=== PATIENT | male | born 1960 | race African-American/Black ===

== ENCOUNTER 2017-08-06 08:36 | Emergency (ER) | payer MEDICARE, MEDICAID ==
[2017-08-06 09:35] LABS: #Lymphocytes 1.2 thou/uL (1.20-3.40); #Monocytes 0.4 thou/uL (0.11-0.59); #Neutrophils 2.6 thou/uL (1.40-6.50); %Basophils 0.8 % (0.0-1.0); %Lymphocytes 28.8 % (21.0-51.0); %Monocytes 8.7 % (0.0-10.0); Hematocrit 48.2 % (42.0-52.0); Red Blood Cell (RBC) Count 4.75 mill/uL (4.70-6.10); White Blood Cell (WBC) Count 4.3 thou/uL (4.8-10.8)
--- NOTE | 2017-08-06 09:38 | RAD ---
AP VIEW CHEST: DATE: 08/06/17. COMPARISON: Comparison is made to previous exam from 03/29/17. FINDINGS: AP view chest demonstrates sternotomy wires seen. Dorsal column stimulator is in place. The lungs are well aerated. No evidence of active intrathoracic disease is seen. No evidence of ef fusions, pneumonia, or pneumothorax seen. IMPRESSION: Unremarkable AP view chest. POS: [facility]
[2017-08-06 09:55] LABS: ALT (SGPT) 18 U/L (8-55); AST (SGOT) 30 U/L (5-34); Alkaline Phosphatase 130 U/L (40-150); Anion Gap 14 mmol/L (10-20); BUN (Urea Nitrogen) 17 mg/dL (8.4-25.7); Bilirubin, Total 1.3 mg/dL (0.2-1.2); CK (CPK) 178 U/L (30-200); Calc. Creatinine Clearance 0 mL/min (70-130); Calcium 9.3 mg/dL (7.8-10.44); Carbon Dioxide 20 mmol/L (22-29); Chloride 106 mmol/L (98-107); Estimated GFR-MDRD Greater than 90; Globulin 3.7 g/dL (2.4-3.5); Lipase 12 U/L (8-78); Protein, Total 7.5 g/dL (6.0-8.3)
[2017-08-06] MEDS ORDERED: Acetaminophen 500 MG TAB ONE (10:02)
[2017-08-06 10:04] LABS: Troponin I Less than 0.010 ng/mL (< 0.028)
--- NOTE | 2017-08-09 06:43 | EKG ---
Test Reason : CP Blood Pressure : / mmHG Vent. Rate : 062 BPM Atrial Rate : 062 BPM P-R Int : 104 ms QRS Dur : 084 ms QT Int : 400 ms P-R-T Axes : 087 088 064 degrees QTc Int : 406 ms Poor data quality, interpretation may be adversely affected Sinus rhythm with sinus arrhythmia with short CO Possible Inferior infarct , age undetermined Abnormal ECG No change from 05/2016 Confirmed by KAE HAUSER, TAN ([id number]), purchase request editor FELICITAS CARVALHO ([id number]) on 08/09/2017 6:43:40 AM Referred By: Confirmed By:TAN PAL MD
== END 2017-08-06 10:32 | disposition home or self-care (01) ==
LOC: ERS 08:36
DX: I20.8 Other forms of angina pectoris (principal); I25.10 Atherosclerotic heart disease of native coronary artery without angina pectoris; E78.5 Hyperlipidemia, unspecified; I10 Essential (primary) hypertension; F17.210 Nicotine dependence, cigarettes, uncomplicated; Z79.899 Other long term (current) drug therapy; Z79.82 Long term (current) use of aspirin
CPT/HCPCS: 36415; 71010; 80053; 82553; 83690; 83880; 84484; 85025; 93005

== ENCOUNTER 2017-11-02 12:31 | Emergency (ER) | payer MEDICARE, MEDICAID ==
--- NOTE | 2017-11-02 13:31 | RAD ---
PORTABLE CHEST: History: Chest pain. Comparison: 08-06-17 FINDINGS: The lung gonzales are clear. No infiltrate or vascular congestion. Heart size is normal. Post op sterno rachel changes noted. IMPRESSION: No acute findings. POS: [facility]
[2017-11-02 15:13] LABS: Hemoglobin 18.6 g/dL (14.0-18.0); Mean Corpuscular HGB CONC 32.9 g/dL (32.0-36.0); Mean Corpuscular Hemoglobin 33.5 pg (27.0-31.0); Mean Platelet Volume 7.9 fL (7.4-10.4); Platelet Count 147 thou/uL (130-400); RBC Distribution Width 12.9 % (11.5-14.5); Red Blood Cell (RBC) Count 5.55 mill/uL (4.70-6.10); White Blood Cell (WBC) Count 4.9 thou/uL (4.8-10.8)
[2017-11-02 15:15] LABS: Prothrombin Time 13.4 SEC (12.0-14.7)
[2017-11-02 15:32] LABS: Eosinophils 1 % (0-10); Lymphocytes 50 % (21-51); MDiff Complete? YES; Monocytes 6 % (0-10); Neutrophil 43 % (42-75); PLT Morphology Comment Appears Adequate
[2017-11-02] MEDS ORDERED: Pantoprazole 40 MG VIAL ONE ×2 (15:37→17:15)
[2017-11-02 15:50] LABS: CKMB 0.8 ng/mL (0-6.6); Troponin I Less than 0.010 ng/mL (< 0.028)
[2017-11-02 16:02] LABS: AST (SGOT) 22 U/L (5-34); Albumin 4.1 g/dL (3.5-5.0); Anion Gap 17 mmol/L (10-20); BUN (Urea Nitrogen) Less than 4 mg/dL (8.4-25.7); Bilirubin, Total 1.2 mg/dL (0.2-1.2); Calc. Creatinine Clearance 0 mL/min (70-130); Calcium 10.2 mg/dL (7.8-10.44); Carbon Dioxide 15 mmol/L (22-29); Chloride 108 mmol/L (98-107); Estimated GFR-MDRD Greater than 90; Globulin 3.7 g/dL (2.4-3.5); Potassium 4.4 mmol/L (3.5-5.1); Protein, Total 7.8 g/dL (6.0-8.3); Sodium 136 mmol/L (136-145)
[2017-11-02 16:13] LABS: Bilirubin Moderate (Negative); Blood, Urine Negative (Negative); Clarity CLEAR (Clear); Glucose, Urine (Dipstick) Negative (Negative); Leukocyte Negative (Negative); Nitrite Negative (Negative); Protein, Urine (Dipstick) Negative (Neg-Trace); Specific Gravity, Urine 1.034 (1.002-1.036)
[2017-11-02 16:26] LABS: Amphetamine Not Detected (NotDetected); Barbiturates Screen Not Detected (NotDetected); Benzodiazepine Screen Not Detected (NotDetected); Cocaine Metabolite Screen Not Detected (NotDetected); Medtox Control Line Valid? VALID (VALID); Medtox Reader # READER 4; Methadone Not Detected (NotDetected); Methamphetamine Not Detected (NotDetected); Opiate Screen Detected (NotDetected); Oxycodone Screen Detected (NotDetected); Phencyclidine (PCP) Not Detected (NotDetected); THC/Cannabinoid Screen Detected (NotDetected); Tricyclic Screen Not Detected (NotDetected)
[2017-11-02] MEDS ORDERED: Acetaminophen 325 MG TAB PO PRN (17:02)
[2017-11-02] MEDS ORDERED: HYDROcodone/Acetaminophen 10/325 mg Tablet PO PRN (17:02)
[2017-11-02] MEDS ORDERED: Mag-Al 1200 mg/1200 mg/30 ML UDCUP PO PRN (17:02)
[2017-11-02] MEDS ORDERED: traMADol HCl 50 MG TAB PO PRN (17:02)
[2017-11-02] MEDS ORDERED: Promethazine HCl 25 MG SUPP PR PRN (17:02)
[2017-11-02] MEDS ORDERED: Sodium Chloride 0.9% 1,000 ML IV SCH (17:02)
[2017-11-02] MEDS ORDERED: Nitroglycerin 0.4 MG TAB (25 Tab Bottle) PO PRN (17:02)
[2017-11-02] MEDS ORDERED: Guaifenesin DM 100-10/5 ML UDCUP PO PRN (17:02)
[2017-11-02 17:35] LABS: Glucose 81 mg/dL (70-105)
[2017-11-02 17:37] LABS: Alkaline Phosphatase 106 U/L (40-150)
--- NOTE | 2017-11-02 17:39 | HP ---
REASON FOR ADMISSION: Chest pain, epigastric pain with radiation to the back. HISTORY OF PRESENTING ILLNESS: The patient gives history of having chest pain, which started from yesterday. This is in the retrosternal area and feels heavy. It is also burning in nature. This is associated with epigastric pain with some radiation to the back. He took nitroglycerin, which gave him some relief. He has been coughing with yellow sputum. The patient continues to smoke one pack a day despite having CABG. No complaints of fever. The patient has known history of having had Whipple's procedure for pancreatitis due to alcohol abuse in the past. PAST MEDICAL AND SURGICAL HISTORY: Chronic pain on narcotics, coronary artery disease, CABG done in 2009, hypertension, dyslipidemia, tobacco abuse, marijuana abuse, chronic pancreatitis with prior Whipple's procedure, chronic back pain with prior back surgery, orchiectomy, cholecystectomy, spinal stimulator, peripheral vascular disease, GERD. PERSONAL HISTORY: Smokes one pack a day, admits to using marijuana, does not abuse other drugs or alcohol. FAMILY HISTORY: Father of pancreatic cancer. Mother is alive and has history of coronary artery disease and hypertension. ALLERGIES: Allergic to MORPHINE and ZOFRAN, but is comfortable taking [place] and Ultram. CURRENT MEDICATIONS: Patient takes aspirin 81 mg p.o. daily, Dexilant 30 mg p.o. daily, [place] 10/325 mg q.6 hourly p.r.n., Creon 24,000 Units p.o. 3 times daily, prasugrel 10 mg p.o. daily, Lyrica 150 mg 3 times daily, Phenergan p.r.n. , Ultram p.r.n. REVIEW OF SYSTEMS: The following complete review of systems was negative, unless otherwise mentioned in the HPI or below: Constitutional: Weight loss or gain, ability to conduct usual activities. Skin: Rash, itching. Eyes: Double vision, pain. ENT/Mouth: Nose bleeding, neck stiffness, pain, tenderness. Cardiovascular: Palpitations, dyspnea on exertion, orthopnea. Respiratory: Shortness of breath, wheezing, cough, hemoptysis, fever or night sweats. Gastrointestinal: Poor appetite, abdominal pain, heartburn, nausea, vomiting, constipation, or diarrhea. Genitourinary: Urgency, frequency, dysuria, nocturia. Musculoskeletal: Pain, swelling. Neurologic/Psychiatric: Anxiety, depression. Allergy/Immunologic: Skin rash, bleeding tendency. PHYSICAL EXAMINATION: GENERAL: The patient is a 57-year-old male who is currently not in any acute distress. VITAL SIGNS: Blood pressure 136/74, pulse 76 per minute, respiratory rate 18 per minute, temperature 97.8 degrees Fahrenheit, saturating 95% on room air. NECK: Supple, no elevated JVD. HEENT: Extraocular muscles intact. Pupils reacting to light. Oral cavity mucous membranes are moist. No exudates or congestion. CARDIOVASCULAR: S1, S2 heard. Regular rhythm. RESPIRATORY: Air entry 1+ bilateral. Scattered rhonchi plus, no rales or wheezes. ABDOMEN: Soft, bowel sounds heard. No tenderness, rigidity or guarding. EXTREMITIES: No peripheral edema or calf tenderness. VASCULAR SYSTEM: Peripheral pulses 1+ bilateral. No ischemic ulcerations or gangrene. CENTRAL NERVOUS SYSTEM: No gross focal deficits seen. Patient is alert, awake , oriented well. PSYCHIATRIC SYSTEM: The patient's mood is euthymic. No hallucinations or delusions. LABORATORY AND X-RAY FINDINGS: White count 4.9, H&H 18 and 56, platelet count 147 with 43% neutrophils, MCV is 102. PT, INR, PTT within normal limits. One set of cardiac enzymes are negative. BNP is 12.6. Urine drug screen is positive for opiates, oxycodone, and marijuana. Chest x-ray done shows no acute cardiopulmonary abnormalities. CLINICAL IMPRESSION AND PLAN: The patient will be under observation on telemetry for atypical chest pain with epigastric pain as well. We will try to obtain his lipase and a metabolic panel. He is also dehydrated and will place him on normal saline at 70 mL per hour. His urine is high colored here at bedside. We will continue him on aspirin, small dose of Coreg and Dexilant at home dose, Effient, Ultram and Allegh[place] as before. He will also be on Creon at his home dose before meals for his chronic history of pancreatitis. A CT of the abdomen and pelvis has been ordered in the ER and will follow up on the results. EKG shows normal sinus rhythm at 75 beats per minute with no gross ST- T wave changes. Addendum: his lipase is normal and his chest pain is completely resolved. Troponin is -ve. He wants to go home and drink atleast 2 liters of free water and wants to be discharged from ER. He is adviced to f/u with his pcp in 1 week. Please note this is a same day admit/discharge or consult note from ER. [facility]
[2017-11-02 17:40] LABS: Acetaminophen Less than 6.0 mcg/mL (10.0-30.0); Alcohol Less than 10 mg/dL (Less than 10); Salicylate Less than 8.0 mg/dL (15.0-30.0)
[2017-11-02 17:41] LABS: ALT (SGPT) 14 U/L (8-55); CK (CPK) 164 U/L (30-200); Lipase 18 U/L (8-78)
[2017-11-02 17:43] LABS: Troponin I Less than 0.010 ng/mL (< 0.028)
[2017-11-02] MEDS ORDERED: Fentanyl 100 MCG/2 ML VIAL ONE (17:48)
[2017-11-02] MEDS ORDERED: Carvedilol 3.125 MG TAB PO SCH (21:00)
--- NOTE | 2017-11-02 23:33 | CT ---
ABDOMEN CT WITHOUT CONTRAST PELVIC CT WITHOUT CONTRAST 11/02/17 HISTORY: Chest pain x3 days. Nausea and vomiting. COMPARISON: None. TECHNIQUE: An abdomen and pelvic CT are performed without IV or oral contrast. Coronal reformatted images are bustos bmitted for interpretation. FINDINGS: Mild emphysematous changes in lung bases. Heart size is within normal limits. No pericardial effusion . The descending thoracic aorta and abdominal aorta have an overall normal caliber. No periaortic fat stranding. 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 There ar e scattered calcified atherosclerotic plaques throughout the visualized abdominal vascular system. Limited evaluation of the solid organs due to lack of IV contrast. Grossly, no solid organ abnormalit y. Air in the central biliary system is suspected. Correlate for previous surgery at the sphincter of Od di. Air in the biliary system is noted on a CT from December 2015. There is no gastrohepatic, retrocrural or periportal lymphadenopathy. No mesenteric mass, lymphadenopathy, free air or free fluid. Stable atrophy of the abdominal rectus muscles. Limited evaluation of the alimentary canal due to lack of oral contrast. No evidence of obvious small bowel obstruction. Ileocecal junction is normal. Normal caliber appendix with appendicolith. Fecal m aterial in a nondistended, nondilated colon. There is intrinsic hyperdensity involving the posterior left mid cortex, measuring 0.7 cm in short axis. This corresponds to a previous area of isodensity. Interval hemorrhagic or complex proteinaceous cyst is favored. PELVIC CT: No mass, lymphadenopathy, free air or free fluid. The urinary bladder is unremarkable. IMPRESSION: 1. 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 2. 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 3. No obvious acute abnormality in the abdomen or pelvis. POS: [facility]
[2017-11-03] MEDS ORDERED: Pancrelipase DR 12000 1 CAP PO SCH (08:00)
[2017-11-03] MEDS ORDERED: Prasugrel 10 MG TAB PO SCH (09:00)
[2017-11-03] MEDS ORDERED: Enoxaparin Sodium 40 MG/0.4 ML SYRINGE SC SCH (09:00)
[2017-11-03] MEDS ORDERED: Aspirin 325 MG TAB PO SCH (09:00)
--- NOTE | 2017-11-26 15:14 | EKG ---
Test Reason : Blood Pressure : / mmHG Vent. Rate : 075 BPM Atrial Rate : 075 BPM P-R Int : 130 ms QRS Dur : 080 ms QT Int : 386 ms P-R-T Axes : 080 089 052 degrees QTc Int : 431 ms Normal sinus rhythm Cannot rule out Inferior infarct , age undetermined Abnormal ECG Confirmed by KAE HAUSER, TAN ([id number]), news video editor JOELLE ROOT ([id number]) on 11/26/2017 3:14:06 PM Referred By: Confirmed By:TAN PAL MD
== END 2017-11-02 19:58 | disposition home or self-care (01) ==
LOC: ERS 12:31
DX: R07.9 Chest pain, unspecified (principal); R10.13 Epigastric pain; E78.5 Hyperlipidemia, unspecified; I10 Essential (primary) hypertension; F17.210 Nicotine dependence, cigarettes, uncomplicated; Z79.899 Other long term (current) drug therapy; Z79.82 Long term (current) use of aspirin
CPT/HCPCS: 36415; 71045; 74176; 80053; 80306; 80307; 81003; 82550; 82553; 83690; 83880; 84484; 85025; 85610; 85730; 93005; 96361; 96374; 96375; C9113; J3010

== ENCOUNTER 2019-05-21 15:48 | Emergency (ER) | payer MEDICARE, MEDICAID ==
--- NOTE | 2019-05-21 16:12 | RAD ---
CHEST ONE VIEW: HISTORY: Chest pain. COMPARISON: Radiograph from 11/02/2017. FINDINGS: The leads and dorsal column stimulator are seen with the tip at the mid T9 vertebral body. There is a fracture of the caudal-most median sternotomy wire. The lungs are clear. No pneumothorax . No effusion. IMPRESSION: No acute intrathoracic abnormality. POS: [facility]
[2019-05-21 16:26] LABS: #Eosinphils 0.1 thou/uL (0.0-0.7); #Lymphocytes 2.1 thou/uL (1.20-3.40); #Monocytes 0.4 thou/uL (0.11-0.59); #Neutrophils 2.5 thou/uL (1.40-6.50); %Basophils 0.7 % (0.0-1.0); %Eosinophils 1.5 % (0.0-10.0); %Lymphocytes 40.7 % (21.0-51.0); %Monocytes 6.8 % (0.0-10.0); %Neutrophils 50.3 % (42.0-75.0); Hemoglobin 15.9 g/dL (14.0-18.0); Mean Corpuscular HGB CONC 32.2 g/dL (32.0-36.0); Mean Corpuscular Hemoglobin 32.3 pg (27.0-31.0); Mean Platelet Volume 7.5 fL (7.4-10.4); Platelet Count 165 thou/uL (130-400); RBC Distribution Width 12.5 % (11.5-14.5); Red Blood Cell (RBC) Count 4.93 mill/uL (4.70-6.10); White Blood Cell (WBC) Count 5.1 thou/uL (4.8-10.8)
[2019-05-21 16:45] LABS: ALT (SGPT) 9 U/L (8-55); AST (SGOT) 22 U/L (5-34); Albumin 4.8 g/dL (3.5-5.0); Alkaline Phosphatase 138 U/L (40-150); Anion Gap 13 mmol/L (10-20); BUN (Urea Nitrogen) 14 mg/dL (8.4-25.7); CK (CPK) 230 U/L (30-200); Calc. Creatinine Clearance 0 mL/min (70-130); Carbon Dioxide 22 mmol/L (22-29); Chloride 107 mmol/L (98-107); Estimated GFR-MDRD 89; Globulin 3.8 g/dL (2.4-3.5); Glucose 89 mg/dL (70-105); Potassium 3.7 mmol/L (3.5-5.1); Protein, Total 8.6 g/dL (6.0-8.3); Sodium 138 mmol/L (136-145)
[2019-05-21] MEDS ORDERED: Ketorolac Tromethamine 60 MG/2 ML VIAL ONE (16:48)
== END 2019-05-21 17:20 | disposition home or self-care (01) ==
LOC: ERS 15:48
DX: R07.89 Other chest pain (principal); E78.5 Hyperlipidemia, unspecified; I10 Essential (primary) hypertension; I25.10 Atherosclerotic heart disease of native coronary artery without angina pectoris; F17.210 Nicotine dependence, cigarettes, uncomplicated; Z79.899 Other long term (current) drug therapy; Z79.82 Long term (current) use of aspirin
CPT/HCPCS: 36415; 71045; 80053; 82550; 84484; 85025; 93005; 96372; J1885

== ENCOUNTER 2019-11-07 09:58 | Emergency (ER) | payer MEDICARE, MEDICAID ==
[2019-11-07 11:21] LABS: #Lymphocytes 1.5 thou/uL (1.20-3.40); #Monocytes 0.4 thou/uL (0.11-0.59); #Neutrophils 3.6 thou/uL (1.40-6.50); %Basophils 0.1 % (0.0-1.0); %Eosinophils 0.6 % (0.0-10.0); %Lymphocytes 27.5 % (21.0-51.0); %Monocytes 6.5 % (0.0-10.0); %Neutrophils 65.3 % (42.0-75.0); Hemoglobin 14.7 g/dL (14.0-18.0); Mean Corpuscular HGB CONC 32.9 g/dL (32.0-36.0); Mean Corpuscular Hemoglobin 33.3 pg (27.0-31.0); Mean Platelet Volume 7.2 fL (7.4-10.4); Platelet Count 190 thou/uL (130-400); RBC Distribution Width 12.9 % (11.5-14.5); Red Blood Cell (RBC) Count 4.43 mill/uL (4.70-6.10); White Blood Cell (WBC) Count 5.6 thou/uL (4.8-10.8)
[2019-11-07] MEDS ORDERED: Proparacaine 0.5% Opth 15 ML BOT ONE (11:27)
[2019-11-07] MEDS ORDERED: Fluorescein Opthalmic Strip ONE (11:27)
[2019-11-07] MEDS ORDERED: Fentanyl 100 MCG/2 ML VIAL ONE (11:42)
[2019-11-07 11:47] LABS: ALT (SGPT) 8 U/L (8-55); AST (SGOT) 16 U/L (5-34); Albumin 4.4 g/dL (3.5-5.0); Alkaline Phosphatase 115 U/L (40-110); Anion Gap 11 mmol/L (10-20); BUN (Urea Nitrogen) 16 mg/dL (8.4-25.7); Bilirubin, Total 0.8 mg/dL (0.2-1.2); Calc. Creatinine Clearance 0 mL/min (70-130); Calcium 9.5 mg/dL (7.8-10.44); Carbon Dioxide 26 mmol/L (22-29); Chloride 110 mmol/L (98-107); Estimated GFR-MDRD Greater than 90; Globulin 3.5 g/dL (2.4-3.5); Glucose 80 mg/dL (70-105); Lipase 13 U/L (8-78); Potassium 3.8 mmol/L (3.5-5.1); Protein, Total 7.9 g/dL (6.0-8.3); Sodium 143 mmol/L (136-145)
--- NOTE | 2019-11-07 11:50 | RAD ---
FRONTAL RADIOGRAPH CHEST: Date: 11/07/2019 COMPARISON: 05/21/2019. HISTORY: Chest pain. FINDINGS: Mild stable increased linear interstitial density. Stable hyperinflation. Midline sternotomy wires an d dorsal column stimulating leads again noted. No focal consolidation or alveolar edema. There is a q uestionable nodule within the lateral aspect of the left lung base measuring approximately 9-10 mm. R ecommend 2 view examination of the chest for further assessment. IMPRESSION: No acute findings. Questionable nodule within the lateral aspect of the left base versus nipple shadow. Recommend follow -up PA and lateral imaging with nipple markers. CODE LN. CODE T. POS: [facility]
--- NOTE | 2019-11-07 12:40 | CT ---
CT FACIAL BONES WITH IV CONTRAST: 11/07/2019 PROVIDED CLINICAL HISTORY: Eye pain. FINDINGS: There is cutaneous thickening and increased density involving the subjacent subcutaneous adipose laye r in the left infraorbital/premaxillary region. There is no evidence for a rim enhancing fluid collec tion to suggest abscess. The globes and other orbital contents appear normal. The paranasal sinuses are free of significant opacity. No regional lymph node enlargement is apparent. The regional major vascular structures appear unremar kable, with the exception of vascular calcification. The oral cavity, oropharynx and hypopharynx demo nstrate a normal CT appearance. IMPRESSION: Left infraorbital/premaxillary soft tissue changes suggesting cellulitis. There is no evidence for so ft tissue abscess or post septal abnormality. POS: [facility]
[2019-11-07] MEDS ORDERED: Clindamycin 150 MG CAP PO SCH (13:00)
[2019-11-07 13:38] LABS: Troponin I 0.012 ng/mL (< 0.028)
[2019-11-07] MEDS ORDERED: Iopamidol-370 76% 500 ML 1 ML ONE (14:47)
== END 2019-11-07 14:00 | disposition home or self-care (01) ==
LOC: ERS 09:58
DX: R07.9 Chest pain, unspecified (principal); L03.213 Periorbital cellulitis; I25.10 Atherosclerotic heart disease of native coronary artery without angina pectoris; E78.5 Hyperlipidemia, unspecified; I10 Essential (primary) hypertension; F17.210 Nicotine dependence, cigarettes, uncomplicated; Z79.899 Other long term (current) drug therapy; Z79.82 Long term (current) use of aspirin
CPT/HCPCS: 36415; 70487; 71045; 80053; 83690; 84484; 85025; 93005; 96374; J3010; Q9967

== ENCOUNTER 2020-10-28 04:40 | Emergency (ER) | payer MEDICARE, MEDICAID ==
[2020-10-28] MEDS ORDERED: Ketorolac Tromethamine 30 MG/ML VIAL ONE (05:01)
[2020-10-28 05:36] LABS: #Eosinphils 0.1 thou/uL (0.0-0.7); #Lymphocytes 1.6 thou/uL (1.20-3.40); #Monocytes 0.5 thou/uL (0.11-0.59); #Neutrophils 2.1 thou/uL (1.40-6.50); %Basophils 1.1 % (0.0-1.0); %Eosinophils 1.6 % (0.0-10.0); %Lymphocytes 36.1 % (21.0-51.0); %Neutrophils 49.2 % (42.0-75.0); Mean Corpuscular HGB CONC 32.5 g/dL (32.0-36.0); Mean Corpuscular Hemoglobin 32.5 pg (27.0-31.0); Mean Corpuscular Volume 99.8 fL (78.0-98.0); Mean Platelet Volume 7.7 fL (7.4-10.4); Platelet Count 152 thou/uL (130-400); RBC Distribution Width 12.5 % (11.5-14.5); Red Blood Cell (RBC) Count 4.32 mill/uL (4.70-6.10); White Blood Cell (WBC) Count 4.3 thou/uL (4.8-10.8)
[2020-10-28] MEDS ORDERED: Prochlorperazine Maleate 5 MG TAB ONE (05:48)
[2020-10-28 05:57] LABS: ALT (SGPT) 7 U/L (8-55); AST (SGOT) 15 U/L (5-34); Albumin 3.9 g/dL (3.5-5.0); Alkaline Phosphatase 114 U/L (40-110); Anion Gap 12 mmol/L (10-20); BUN (Urea Nitrogen) 14 mg/dL (8.4-25.7); Bilirubin, Total 0.8 mg/dL (0.2-1.2); Calc. Creatinine Clearance 0 mL/min (70-130); Calcium 8.5 mg/dL (7.8-10.44); Carbon Dioxide 20 mmol/L (22-29); Chloride 111 mmol/L (98-107); Globulin 3.1 g/dL (2.4-3.5); Glucose 87 mg/dL (70-105); Potassium 3.4 mmol/L (3.5-5.1); Sodium 140 mmol/L (136-145)
--- NOTE | 2020-10-28 07:48 | RAD ---
RADIOGRAPH CHEST 1 VIEW: DATE: 10/28/2020 HISTORY: 60-year-old male with cough and chest pain FINDINGS: There are no airspace densities, pulmonary edema, pneumothorax, or cardiomegaly. The lateral costophr enic angles are sharp. Sternotomy wires. Prominent interstitial markings. IMPRESSION: No acute cardiopulmonary findings.
[2020-10-28 08:33] LABS: SARS-CoV-2 MS2 Positive; SARS-CoV-2 N Gene Negative; SARS-CoV-2 S Gene Negative; SARS-CoV-2 by NAA Not Detected (NotDetected); SARS-CoV-2 orf1ab Negative
== END 2020-10-28 06:17 | disposition home or self-care (01) ==
LOC: ERS 04:40
DX: R51.9 Headache, unspecified (principal); M79.10 Myalgia, unspecified site; Z20.828 Contact with and (suspected) exposure to other viral communicable diseases; I25.10 Atherosclerotic heart disease of native coronary artery without angina pectoris; E78.5 Hyperlipidemia, unspecified; I10 Essential (primary) hypertension; F17.210 Nicotine dependence, cigarettes, uncomplicated; Z79.82 Long term (current) use of aspirin; Z79.899 Other long term (current) drug therapy
CPT/HCPCS: 71045; 80053; 84484; 85025; 93005; U0003; 36415; 87635; 96372; J1885; Q0164

== ENCOUNTER 2021-01-14 10:17 | Inpatient (IN) | payer MEDICARE, MEDICAID ==
[~2021-01-14 10:17] MED LIST: Iopamidol 370 76% 100 ML VIAL ONE
[2021-01-14 10:47] LABS: #Eosinphils 0.1 thou/uL (0.0-0.7); #Lymphocytes 1.6 thou/uL (1.20-3.40); #Monocytes 0.4 thou/uL (0.11-0.59); #Neutrophils 2.5 thou/uL (1.40-6.50); %Basophils 0.4 % (0.0-1.0); %Eosinophils 1.6 % (0.0-10.0); %Lymphocytes 35.7 % (21.0-51.0); %Monocytes 7.8 % (0.0-10.0); %Neutrophils 54.4 % (42.0-75.0); Hemoglobin 16.2 g/dL (14.0-18.0); Mean Corpuscular HGB CONC 33.6 g/dL (32.0-36.0); Mean Corpuscular Hemoglobin 33.8 pg (27.0-31.0); Platelet Count 163 thou/uL (130-400); RBC Distribution Width 12.5 % (11.5-14.5); Red Blood Cell (RBC) Count 4.79 mill/uL (4.70-6.10); White Blood Cell (WBC) Count 4.5 thou/uL (4.8-10.8)
[2021-01-14] MEDS ORDERED: HYDROcodone/Acetaminophen 10/325 mg Tablet ONE (10:53)
[2021-01-14] MEDS ORDERED: Ondansetron PF 4 MG/2 ML Vial ONE (10:54)
[2021-01-14] MEDS ORDERED: Nitroglycerin 2% Ointment 1 INCH/1 GM Packet ONE (10:54)
[2021-01-14 11:08] LABS: Alcohol Less than 10 mg/dL (Less than 10)
[2021-01-14] MEDS ORDERED: Promethazine HCl 25 MG/ML VIAL ONE (11:15)
[2021-01-14 11:27] LABS: Globulin 3.2 g/dL (2.4-3.5)
[2021-01-14 11:32] LABS: Acetaminophen Less than 6.0 mcg/mL (10.0-30.0); CK (CPK) 174 U/L (30-200); Salicylate Less than 8.0 mg/dL (15.0-30.0)
[2021-01-14] MEDS ORDERED: Fentanyl 100 MCG/2 ML VIAL ONE (11:38)
[2021-01-14 11:58] LABS: Albumin 4.5 g/dL (3.5-5.0)
[2021-01-14 12:00] LABS: Calcium 9.2 mg/dL (7.8-10.44); Chloride 108 mmol/L (98-107); Potassium 4.1 mmol/L (3.5-5.1); Sodium 139 mmol/L (136-145)
[2021-01-14 12:01] LABS: Glucose 114 mg/dL (70-105); Protein, Total 7.8 g/dL (6.0-8.3)
[2021-01-14 12:02] LABS: Anion Gap 16 mmol/L (10-20); Carbon Dioxide 19 mmol/L (22-29)
[2021-01-14 12:03] LABS: Bilirubin, Total 1.3 mg/dL (0.2-1.2)
[2021-01-14 12:04] LABS: Alkaline Phosphatase 126 U/L (40-110); Calc. Creatinine Clearance 0 mL/min (70-130)
[2021-01-14 12:05] LABS: BUN (Urea Nitrogen) 16 mg/dL (8.4-25.7)
[2021-01-14 12:06] LABS: AST (SGOT) 21 U/L (5-34)
[2021-01-14 12:07] LABS: ALT (SGPT) 12 U/L (8-55); Lipase 20 U/L (8-78)
[2021-01-14 12:57] LABS: Bilirubin Negative (Negative); Blood, Urine Negative (Negative); Clarity Clear (Clear); Glucose, Urine (Dipstick) Normal (Negative); Ketone, Urine Negative (Negative); Leukocyte Negative Leu/uL (Negative); Nitrite Negative (Negative); Protein, Urine (Dipstick) 10 mg/dL (Neg-Trace); Specific Gravity, Urine 1.046 (1.002-1.036)
[2021-01-14 13:05] LABS: Medtox Reader # READER 4
[2021-01-14 13:06] LABS: Amphetamine Not Detected (NotDetected); Barbiturates Screen Not Detected (NotDetected); Benzodiazepine Screen Not Detected (NotDetected); Cocaine Metabolite Screen Not Detected (NotDetected); Medtox Control Line Valid? VALID (VALID); Methadone Not Detected (NotDetected); Methamphetamine Not Detected (NotDetected); Opiate Screen Detected (NotDetected); Oxycodone Screen Not Detected (NotDetected); Phencyclidine (PCP) Not Detected (NotDetected); THC/Cannabinoid Screen Detected (NotDetected); Tricyclic Screen Not Detected (NotDetected)
[2021-01-14] MEDS ORDERED: Enoxaparin Sodium 60 MG/0.6 ML SYRINGE ONE (14:09)
[2021-01-14] MEDS ORDERED: Aspirin 325 MG TAB PO SCH (14:30)
[2021-01-14] MEDS ORDERED: Promethazine 25 MG TAB PO PRN (14:33)
[2021-01-14] MEDS ORDERED: Carvedilol 3.125 MG TAB PO SCH (14:45)
[2021-01-14 15:32] LABS: Troponin I 0.011 ng/mL (< 0.028)
[2021-01-14 17:35] VITALS: BMI 20.9
[2021-01-14] MEDS: Carvedilol 3.125 MG TAB PO SCH (18:41)
[2021-01-14 19:04] LABS: Troponin I 0.017 ng/mL (< 0.028)
[2021-01-14] MEDS ORDERED: Rosuvastatin 20 MG TAB PO SCH (21:00)
[2021-01-14] MEDS: Pantoprazole 40 MG VIAL IVP SCH (21:20)
[2021-01-14] MEDS: Nitroglycerin 2% Ointment 1 INCH/1 GM Packet TOP SCH (21:20)
[2021-01-14] MEDS: HYDROcodone/Acetaminophen 5/325 mg Tablet PO PRN (21:35)
[2021-01-15 04:33] LABS: SARS-CoV-2 PCR by NAA Not Detected (NotDetected)
[2021-01-15] MEDS: HYDROcodone/Acetaminophen 5/325 mg Tablet PO PRN ×3 (06:10→14:02)
[2021-01-15] MEDS: Nitroglycerin 2% Ointment 1 INCH/1 GM Packet TOP SCH ×2 (06:11→14:07)
[2021-01-15 06:44] LABS: Cardiac Risk 4.5 (Less than 4.5)
[2021-01-15] MEDS ORDERED: Aspirin Chewable 81 MG TAB PO SCH (09:00)
[2021-01-15] MEDS ORDERED: FLU VACC QS2020-21(6MOS UP)/PF 60 MCG/0.5 ML SYRINGE IM ONE (09:00)
[2021-01-15] MEDS ORDERED: Nitroglycerin 0.4 MG TAB (25 Tab Bottle) SL PRN (09:35)
[2021-01-15] MEDS ORDERED: Nitroglycerin 0.4 MG TAB 1 EACH SL PRN (09:38)
[2021-01-15] MEDS: Carvedilol 3.125 MG TAB PO SCH ×2 (09:46→16:20)
[2021-01-15] MEDS ORDERED: Regadenoson 0.4 MG/5 ML SYRINGE ONE (09:57)
[2021-01-15] MEDS ORDERED: Fentanyl 100 MCG/2 ML VIAL SLOW IVP PRN (10:02)
[2021-01-15] MEDS: Pantoprazole 40 MG VIAL IVP SCH (10:48)
[2021-01-15 16:35] VITALS: BP 169/77; TEMP 98.5
[2021-01-15] MEDS ORDERED: Enoxaparin Sodium 80 MG/0.8 ML SYRINGE SC SCH (23:50)
== END 2021-01-15 16:42 | disposition home or self-care (01) | DRG 313 ==
LOC: ERS 10:17 → 2SW 14:59
PROVIDERS: ADMIT Internal Medicine; ATTEND Internal Medicine
DX: R07.89 Other chest pain (principal); K86.1 Other chronic pancreatitis; I25.110 Atherosclerotic heart disease of native coronary artery with unstable angina pectoris; Z20.822 Contact with and (suspected) exposure to COVID-19; F17.210 Nicotine dependence, cigarettes, uncomplicated; N28.1 Cyst of kidney, acquired; I10 Essential (primary) hypertension; E78.5 Hyperlipidemia, unspecified; I49.3 Ventricular premature depolarization; K86.89 Other specified diseases of pancreas; Z95.1 Presence of aortocoronary bypass graft; Z88.0 Allergy status to penicillin; Z88.5 Allergy status to narcotic agent; Z88.8 Allergy status to other drugs, medicaments and biological substances; Z79.82 Long term (current) use of aspirin; Z79.899 Other long term (current) drug therapy; Z79.01 Long term (current) use of anticoagulants
CPT/HCPCS: 36415; 71045; 71275; 78452; 80053; 80061; 80306; 80307; 81003; 82550; 83690; 83735; 83880; 84443; 84484; 85025; 87635; 93005; 93017; 94760; 96372; 96374; 96375; A9500; C9113; J1650; J2405; J2550; J2785; J3010; Q9967; U0003; U0005

== ENCOUNTER 2021-09-27 12:11 | Emergency (ER) | payer MEDICARE, MEDICAID ==
[2021-09-27 12:51] LABS: #Eosinphils 0.1 thou/uL (0.0-0.7); #Lymphocytes 1.7 thou/uL (1.20-3.40); #Monocytes 0.4 thou/uL (0.11-0.59); #Neutrophils 2.6 thou/uL (1.40-6.50); %Basophils 0.4 % (0.0-1.0); %Eosinophils 1.6 % (0.0-10.0); %Lymphocytes 34.7 % (21.0-51.0); %Monocytes 8.5 % (0.0-10.0); %Neutrophils 54.9 % (42.0-75.0); Mean Corpuscular Hemoglobin 36.3 pg (27.0-31.0); Mean Platelet Volume 8.5 fL (7.4-10.4); Platelet Count 167 thou/uL (130-400); RBC Distribution Width 12.4 % (11.5-14.5); Red Blood Cell (RBC) Count 3.57 mill/uL (4.70-6.10); White Blood Cell (WBC) Count 4.8 thou/uL (4.8-10.8)
[2021-09-27] MEDS ORDERED: Aspirin Chewable 81 MG TAB ONE (13:59)
[2021-09-27] MEDS ORDERED: Nitroglycerin 2% Ointment 1 INCH/1 GM Packet ONE (13:59)
[2021-09-27 14:02] LABS: Albumin 3.6 g/dL (3.5-5.0)
[2021-09-27 14:03] LABS: Chloride 111 mmol/L (98-107); Potassium 3.7 mmol/L (3.5-5.1); Sodium 139 mmol/L (136-145)
[2021-09-27 14:04] LABS: Calcium 9.1 mg/dL (7.8-10.44); Glucose 73 mg/dL (70-105)
[2021-09-27 14:05] LABS: Globulin 3.1 g/dL (2.4-3.5); Protein, Total 6.7 g/dL (6.0-8.3)
[2021-09-27 14:06] LABS: Anion Gap 12 mmol/L (10-20); Bilirubin, Total 0.6 mg/dL (0.2-1.2); Carbon Dioxide 20 mmol/L (22-29)
[2021-09-27 14:07] LABS: Alkaline Phosphatase 91 U/L (40-110)
[2021-09-27 14:08] LABS: Calc. Creatinine Clearance 0 mL/min (70-130)
[2021-09-27 14:09] LABS: BUN (Urea Nitrogen) 9 mg/dL (8.4-25.7)
[2021-09-27 14:10] LABS: ALT (SGPT) 13 U/L (8-55); AST (SGOT) 18 U/L (5-34)
== END 2021-09-27 14:47 | disposition left against medical advice (07) ==
LOC: ERS 12:11
DX: R07.9 Chest pain, unspecified (principal); I25.10 Atherosclerotic heart disease of native coronary artery without angina pectoris; E78.5 Hyperlipidemia, unspecified; I10 Essential (primary) hypertension; F17.210 Nicotine dependence, cigarettes, uncomplicated; Z79.899 Other long term (current) drug therapy; Z79.82 Long term (current) use of aspirin
CPT/HCPCS: 36415; 71045; 80053; 84484; 85025; 93005

== ENCOUNTER 2022-04-10 09:37 | Inpatient (IN) | payer MEDICARE, MEDICAID ==
[2022-04-10] MEDS ORDERED: Dextrose 50% Abboject 50 ML SYRINGE ONE ×2 (09:56→16:37)
[2022-04-10] MEDS ORDERED: Sodium Bicarb 50 MEQ/50 ML Abboject 8.4% SYRINGE ONE (10:04)
[2022-04-10] MEDS ORDERED: Calcium Chloride 1 GM/10 ML Abboject SYRINGE ONE (10:04)
[2022-04-10 10:48] LABS: Hemoglobin 6.8 g/dL (14.0-18.0); Mean Corpuscular HGB CONC 32.1 g/dL (32.0-36.0); Mean Corpuscular Hemoglobin 35.4 pg (27.0-31.0); Mean Platelet Volume 8.1 fL (7.4-10.4); Platelet Count 65 thou/uL (130-400); Red Blood Cell (RBC) Count 1.93 mill/uL (4.70-6.10); Reflex for Review?? YES; White Blood Cell (WBC) Count 0.5 thou/uL (4.8-10.8)
[2022-04-10] MEDS ORDERED: Fentanyl 100 MCG/2 ML VIAL ONE (10:56)
[2022-04-10 10:57] LABS: Calc. Creatinine Clearance 0 mL/min (70-130)
[2022-04-10] MEDS ORDERED: Piperacillin/Tazobactam 3.375 GM VIAL ONE (11:01)
[2022-04-10 11:14] LABS: Macrocytosis MODERATE=16-30 cells (100X) (0-5/hpf); Ovalocytes SLIGHT = 2-5 cells (100X) (0-1/hpf); Platelet Morphology Comment Appears Decreased; Polychromasia SLIGHT = 2-3 cells (100X) (0-2/hpf)
[2022-04-10 11:33] LABS: PTT 38.5 sec (22.9-36.1); Prothrombin Time 23.3 sec (12.0-14.7)
[2022-04-10 11:48] LABS: Iron 15 ug/dL (65-175); Iron Binding Capacity, Total 235 mcg/dL (261-462)
[2022-04-10 11:50] LABS: Calcium 7.2 mg/dL (7.8-10.44)
[2022-04-10 11:52] LABS: Carbon Dioxide 13 mmol/L (22-29)
[2022-04-10 11:59] LABS: Sodium 144 mmol/L (136-145)
[2022-04-10 12:00] LABS: Anion Gap 19 mmol/L (10-20); Chloride 116 mmol/L (98-107)
[2022-04-10 12:01] LABS: BUN (Urea Nitrogen) 59 mg/dL (8.4-25.7); Glucose 92 mg/dL (70-105)
[2022-04-10 12:02] LABS: Bilirubin, Total 1.1 mg/dL (0.2-1.2); Protein, Total 6.1 g/dL (6.0-8.3)
[2022-04-10 12:04] LABS: AST (SGOT) 254 U/L (5-34); Alkaline Phosphatase 66 U/L (40-110); Globulin 3.1 g/dL (2.4-3.5)
[2022-04-10 12:05] LABS: ALT (SGPT) 142 U/L (8-55)
[2022-04-10 12:06] LABS: Magnesium 2.2 mg/dL (1.6-2.6)
[2022-04-10] MEDS ORDERED: Azithromycin 500 MG VIAL ONE (12:08)
[2022-04-10 12:18] LABS: Bilirubin Small (Negative); Blood, Urine Large (Negative); Glucose, Urine (Dipstick) Negative (Negative); Ketone, Urine Trace mg/dL (Negative); Leukocyte Negative (Negative); Nitrite Positive (Negative); Protein, Urine (Dipstick) 100 mg/dL (Neg-Trace)
[2022-04-10 12:21] LABS: Clarity Hazy (Clear)
[2022-04-10 12:22] LABS: Specific Gravity, Urine 1.022 (1.002-1.036)
[2022-04-10 12:25] LABS: Bacteria/HPF 2+ HPF (None Seen); RBC/HPF 0-3 HPF (0-3); WBC/HPF 0-3 HPF (0-3)
[2022-04-10] MEDS ORDERED: Ketamine 50 MG/ML (10ML VIAL) ONE (12:32)
[2022-04-10] MEDS ORDERED: EPINEPHrine 1 MG/10 ML Abboject SYRINGE ONE (12:35)
[2022-04-10 12:59] LABS: Actual Bicarbonate (HCO3v) 16 mEq/L (22-28); Analyzer IN Cardio ER; Base Excess -13.4 mEq/L (-2.0 to +3.0); Calcium, Ionized (venous) 0.83 mmol/L (1.16-1.32); Chloride (VBG) 115 mmol/L (98-106); Hemoglobin (Hb) 14.4 g/dL (13.1-17.2); Potassium (VBG) 4.73 mmol/L (3.70-5.30); Sodium 142.6 mmol/L (133-146)
[2022-04-10] MEDS ORDERED: Norepinephrine 8 MG/0.9% NS 250 ML ONE (13:00)
[2022-04-10 13:05] LABS: pH (venous) 7.12 (7.32-7.43)
[2022-04-10 13:06] LABS: Actual Bicarbonate (HCO3a) 3.9 mEq/L (22-28); Analyzer IN Cardio ER; Base Excess (BEa) -24.9 mEq/L (-2.0 to +3.0)
[2022-04-10 13:07] LABS: CO2 Tension 17.1 mmHg (35.0-45.0); pH, Arterial 6.98 (7.35-7.45)
[2022-04-10 13:08] LABS: Hemoglobin (Hb) 3.4 g/dL (14.0-18.0); O2 Tension (PaO2), arterial 43.8 mmHg (> 80.0); Potassium - ABG Lab 0.83 mmol/L (3.70-5.30)
[2022-04-10 13:09] LABS: ALV-art Gradient 647.825 mmHg (0-20); Puncture Site RRA
[2022-04-10] MEDS ORDERED: Propofol 1,000 MG/100 ML VIAL IV ONE (13:15)
[2022-04-10 13:29] LABS: Lactic Acid 3.7 mmol/L (0.5-2.2)
[2022-04-10] MEDS ORDERED: Ventilator Sedation Protocol 1 EACH FS ONE (13:53)
[2022-04-10 14:28] LABS: Troponin I 0.036 ng/mL (< 0.028)
[2022-04-10 14:39] LABS: Actual Bicarbonate (HCO3a) 16.3 mEq/L (22-28); Analyzer IN Cardio ER; Base Excess (BEa) -12.1 mEq/L (-2.0 to +3.0); CO2 Tension 46.5 mmHg (35.0-45.0); Calcium, Ionized (arterial) 1.06 mmol/L (1.12-1.30); Carboxyhemoglobin (COHb) 0.3 gm% (0.0-3.0); Hemoglobin (Hb) 14.6 g/dL (14.0-18.0); O2 Tension (PaO2), arterial 112.2 mmHg (> 80.0); Potassium - ABG Lab 4.45 mmol/L (3.70-5.30)
[2022-04-10 14:40] LABS: ALV-art Gradient 542.675 mmHg (0-20); Puncture Site LRA; pH, Arterial 7.16 (7.35-7.45)
[2022-04-10] MEDS ORDERED: Vecuronium 10 MG VIAL ONE (15:28)
[2022-04-10 15:39] LABS: SARS-CoV-2 NAA Rapid Test Not Detected (NotDetected)
[2022-04-10] MEDS ORDERED: DISCONTINUE PREVIOUS NARCOTIC PAIN MEDICATIONS AND BENZODIAZEPINES FS SCH (15:45)
[2022-04-10] MEDS ORDERED: Fentanyl BOLUS 250 ML IVPB PRN (15:45)
[2022-04-10] MEDS ORDERED: Morphine 4 MG/ML VIAL SLOW IVP PRN (15:45)
[2022-04-10] MEDS ORDERED: Propofol BOLUS 1,000 MG/100 ML VIAL IV PRN (15:45)
[2022-04-10] MEDS ORDERED: Fentanyl CADD 100 ML IV SCH (15:45)
[2022-04-10 16:24] LABS: Actual Bicarbonate (HCO3a) 16.7 mEq/L (22-28); Base Excess (BEa) -12.7 mEq/L (-2.0 to +3.0); CO2 Tension 51.7 mmHg (35.0-45.0); Calcium, Ionized (arterial) 1.08 mmol/L (1.12-1.30); Carboxyhemoglobin (COHb) 0.9 gm% (0.0-3.0); Hemoglobin (Hb) 14.9 g/dL (14.0-18.0); O2 Tension (PaO2), arterial 116.8 mmHg (> 80.0); Potassium - ABG Lab 4.32 mmol/L (3.70-5.30)
[2022-04-10 16:30] LABS: Puncture Site RRA; pH, Arterial 7.13 (7.35-7.45)
[2022-04-10 16:31] LABS: ALV-art Gradient 531.575 mmHg (0-20)
[2022-04-10 16:35] LABS: Glucose 56 mg/dL (70-105)
[2022-04-10 17:40] LABS: Amphetamine Not Detected (NotDetected); Barbiturates Screen Not Detected (NotDetected); Benzodiazepine Screen Not Detected (NotDetected); Cocaine Metabolite Screen Not Detected (NotDetected); Methadone Not Detected (NotDetected); Methamphetamine Not Detected (NotDetected); Opiate Screen Detected (NotDetected); Oxycodone Screen Not Detected (NotDetected); Phencyclidine (PCP) Not Detected (NotDetected); THC/Cannabinoid Screen Detected (NotDetected); Tricyclic Screen Not Detected (NotDetected)
[2022-04-10] MEDS ORDERED: Vancomycin HCl 750 MG in Sodium Chloride 0.9% 250 ML 250 ML IVPB SCH (18:00)
[2022-04-10] MEDS ORDERED: Dextrose 5% in Water 1,000 ML IV PRN (18:15)
[2022-04-10] MEDS: Sodium Bicarbonate 70 MEQ in Sodium Chloride 0.45% 1,000 ML IV SCH (18:16)
[2022-04-10] MEDS: Dextrose 50% Abboject 50 ML SYRINGE IVP PRN (20:16)
[2022-04-10] MEDS: Vecuronium 10 MG VIAL IVP PRN (20:22)
[2022-04-10] MEDS: fentaNYL Citrate-0.9 % NaCl/PF 100 ML IV SCH (21:19)
[2022-04-11] MEDS: Norepinephrine 8 MG/0.9% NS 250 ML IVPB SCH ×3 (01:58→21:28)
[2022-04-11] MEDS: Propofol 1,000 MG/100 ML VIAL IV PRN ×2 (03:30→14:41)
[2022-04-11] MEDS: Vecuronium 10 MG VIAL IVP PRN (03:39)
[2022-04-11] MEDS: Sodium Bicarbonate 70 MEQ in Sodium Chloride 0.45% 1,000 ML IV SCH (04:00)
[2022-04-11 04:52] LABS: Hemoglobin 14.8 g/dL (14.0-18.0); Mean Corpuscular HGB CONC 31.8 g/dL (32.0-36.0); Mean Platelet Volume 8.6 fL (7.4-10.4); Platelet Count 96 thou/uL (130-400); RBC Distribution Width 13.8 % (11.5-14.5); Red Blood Cell (RBC) Count 4.34 mill/uL (4.70-6.10); White Blood Cell (WBC) Count 0.9 thou/uL (4.8-10.8)
[2022-04-11 05:12] LABS: ALT (SGPT) 570 U/L (8-55); AST (SGOT) 859 U/L (5-34); Albumin 2.7 g/dL (3.5-5.0); Alkaline Phosphatase 72 U/L (40-110); Anion Gap 15 mmol/L (10-20); BUN (Urea Nitrogen) 56 mg/dL (8.4-25.7); Bilirubin, Total 1.5 mg/dL (0.2-1.2); Calc. Creatinine Clearance 31 mL/min (70-130); Calcium 7.5 mg/dL (7.8-10.44); Carbon Dioxide 19 mmol/L (22-29); Chloride 116 mmol/L (98-107); Globulin 3.1 g/dL (2.4-3.5); Glucose 80 mg/dL (70-105); Potassium 4.6 mmol/L (3.5-5.1); Protein, Total 5.8 g/dL (6.0-8.3); Sodium 145 mmol/L (136-145)
[2022-04-11 05:14] LABS: Band 15 % (5-11); Lymphocytes 15 % (21-51); MDiff Complete? YES; Macrocytosis SLIGHT = 6-15 cells (100X) (0-5/hpf); Monocytes 50 % (0-10); Neutrophil 20 % (42-75); Platelet Morphology Comment Appears Decreased
[2022-04-11 07:14] LABS: Actual Bicarbonate (HCO3a) 16.4 mEq/L (22-28); Base Excess (BEa) -10.8 mEq/L (-2.0 to +3.0); CO2 Tension 41.3 mmHg (35.0-45.0); Calcium, Ionized (arterial) 1.04 mmol/L (1.12-1.30); Carboxyhemoglobin (COHb) 0.6 gm% (0.0-3.0); Hemoglobin (Hb) 15.2 g/dL (14.0-18.0); O2 Tension (PaO2), arterial 89.5 mmHg (> 80.0); Potassium - ABG Lab 4.51 mmol/L (3.70-5.30)
[2022-04-11] MEDS ORDERED: Acetaminophen 325 MG TAB PO PRN (07:14)
[2022-04-11 07:17] LABS: Puncture Site LRA; pH, Arterial 7.22 (7.35-7.45)
[2022-04-11 07:18] LABS: ALV-art Gradient 429.275 mmHg (0-20)
[2022-04-11] MEDS ORDERED: Famotidine/PF 20 mg/2ml Vial SLOW IVP SCH (09:00)
[2022-04-11] MEDS: Famotidine 40 MG/4 ML VIAL SLOW IVP SCH (09:28)
[2022-04-11] MEDS: Sodium Bicarbonate 140 MEQ in Dextrose 5% in Water 1,000 ML IV SCH (10:10)
[2022-04-11] MEDS: fentaNYL Citrate-0.9 % NaCl/PF 100 ML IV SCH ×2 (10:11→23:30)
[2022-04-11] MEDS: Lorazepam 2 MG/ML VIAL SLOW IVP PRN ×2 (15:30→16:47)
[2022-04-11] MEDS ORDERED: Digoxin 0.5 MG/2 ML AMP SLOW IVP SCH (16:15)
[2022-04-11] MEDS ORDERED: Sodium Chloride 0.9% 500 ML IV SCH (16:15)
[2022-04-11] MEDS ORDERED: Amiodarone 150 MG in Dextrose 5% in Water 100 ML IVPB SCH (16:30)
[2022-04-11] MEDS ORDERED: Vecuronium 10 MG VIAL ONE (16:40)
[2022-04-11] MEDS: Amiodarone 450 MG in Dextrose 5% in Water 250 ML IVPB SCH (16:47)
[2022-04-11] MEDS ORDERED: Vecuronium 10 MG VIAL IV SCH (17:00)
[2022-04-11] MEDS ORDERED: Vecuronium Bromide 20 MG VIAL IV SCH (17:00)
[2022-04-11] MEDS ORDERED: Vancomycin HCl 750 MG in Sodium Chloride 0.9% 250 ML 250 ML IVPB SCH (18:00)
[2022-04-11] MEDS: Digoxin 0.5 MG/2 ML AMP SLOW IVP SCH ×2 (18:36→23:33)
[2022-04-11 18:49] LABS: Vancomycin, Random 4.1 ug/mL (See Comment)
[2022-04-11] MEDS ORDERED: VANCOMYCIN 1.25 GM/250 ML BAG 1.25 GM in Premix Bag 1 BAG IVPB SCH (19:30)
[2022-04-12] MEDS: Sodium Bicarbonate 140 MEQ in Dextrose 5% in Water 1,000 ML IV SCH (00:38)
[2022-04-12] MEDS: Propofol 1,000 MG/100 ML VIAL IV PRN ×2 (04:11→21:16)
[2022-04-12] MEDS: Amiodarone 450 MG in Dextrose 5% in Water 250 ML IVPB SCH ×2 (04:18→16:32)
[2022-04-12 04:54] LABS: INR-International Normal Ratio 1.4; PTT 41.7 sec (22.9-36.1)
[2022-04-12 05:04] LABS: Digoxin 1.92 ng/mL (0.8-2.0)
[2022-04-12 05:08] LABS: ALT (SGPT) 701 U/L (8-55); AST (SGOT) 727 U/L (5-34); Albumin 2.3 g/dL (3.5-5.0); Alkaline Phosphatase 78 U/L (40-110); Anion Gap 12 mmol/L (10-20); BUN (Urea Nitrogen) 42 mg/dL (8.4-25.7); Bilirubin, Total 1.9 mg/dL (0.2-1.2); CK (CPK) 1068 U/L (30-200); Calc. Creatinine Clearance 40 mL/min (70-130); Calcium 7.2 mg/dL (7.8-10.44); Carbon Dioxide 24 mmol/L (22-29); Chloride 111 mmol/L (98-107); Globulin 2.9 g/dL (2.4-3.5); Glucose 133 mg/dL (70-105); Magnesium 1.9 mg/dL (1.6-2.6); Potassium 4.5 mmol/L (3.5-5.1); Protein, Total 5.2 g/dL (6.0-8.3); Sodium 142 mmol/L (136-145)
[2022-04-12 05:28] LABS: Band 53 % (5-11); Hemoglobin 13.9 g/dL (14.0-18.0); Lymphocytes 12 % (21-51); MDiff Complete? YES; Macrocytosis MODERATE=16-30 cells (100X) (0-5/hpf); Mean Corpuscular HGB CONC 33.8 g/dL (32.0-36.0); Mean Corpuscular Hemoglobin 35.7 pg (27.0-31.0); Mean Platelet Volume 8.8 fL (7.4-10.4); Metamyelocyte 6 % (0-0); Monocytes 1 % (0-10); Neutrophil 28 % (42-75); Platelet Count 67 thou/uL (130-400); Platelet Morphology Comment Appears Decreased; RBC Distribution Width 13.6 % (11.5-14.5); Vacuoles SLIGHT; White Blood Cell (WBC) Count 3.5 thou/uL (4.8-10.8)
[2022-04-12 07:57] LABS: Actual Bicarbonate (HCO3a) 23.3 mEq/L (22-28); Base Excess (BEa) -2.3 mEq/L (-2.0 to +3.0); CO2 Tension 42.7 mmHg (35.0-45.0); Calcium, Ionized (arterial) 1.03 mmol/L (1.12-1.30); Carboxyhemoglobin (COHb) 0.7 gm% (0.0-3.0); Hemoglobin (Hb) 14.1 g/dL (14.0-18.0); O2 Tension (PaO2), arterial 79.6 mmHg (> 80.0); Potassium - ABG Lab 4.28 mmol/L (3.70-5.30); pH, Arterial 7.35 (7.35-7.45)
[2022-04-12 08:07] LABS: Puncture Site RBA
[2022-04-12 08:08] LABS: ALV-art Gradient 294.825 mmHg (0-20)
[2022-04-12] MEDS: Digoxin 0.5 MG/2 ML AMP SLOW IVP SCH ×2 (09:42→13:11)
[2022-04-12] MEDS: Famotidine 40 MG/4 ML VIAL SLOW IVP SCH (09:42)
[2022-04-12] MEDS: Norepinephrine 8 MG/0.9% NS 250 ML IVPB SCH ×2 (09:42→16:14)
[2022-04-12] MEDS: Dextrose 50% Abboject 50 ML SYRINGE IVP PRN (16:15)
[2022-04-12] MEDS ORDERED: Vancomycin 1 GM in Premix Bag 1 BAG IVPB SCH (18:00)
[2022-04-12] MEDS: fentaNYL Citrate-0.9 % NaCl/PF 100 ML IV SCH (20:27)
[2022-04-13 04:29] LABS: INR-International Normal Ratio 1.3; PTT 41.4 sec (22.9-36.1); Prothrombin Time 16.5 sec (12.0-14.7)
[2022-04-13 04:39] LABS: ALT (SGPT) 632 U/L (8-55); AST (SGOT) 529 U/L (5-34); Albumin 2.2 g/dL (3.5-5.0); Alkaline Phosphatase 85 U/L (40-110); Anion Gap 13 mmol/L (10-20); BUN (Urea Nitrogen) 33 mg/dL (8.4-25.7); Bilirubin, Total 2.1 mg/dL (0.2-1.2); CK (CPK) 867 U/L (30-200); Calc. Creatinine Clearance 52 mL/min (70-130); Calcium 8.2 mg/dL (7.8-10.44); Carbon Dioxide 24 mmol/L (22-29); Chloride 110 mmol/L (98-107); Globulin 2.9 g/dL (2.4-3.5); Glucose 101 mg/dL (70-105); Protein, Total 5.1 g/dL (6.0-8.3); Sodium 143 mmol/L (136-145)
[2022-04-13 04:44] LABS: Band 36 % (5-11); Hemoglobin 13.4 g/dL (14.0-18.0); Lymphocytes 1 % (21-51); MDiff Complete? YES; Macrocytosis SLIGHT = 6-15 cells (100X) (0-5/hpf); Mean Corpuscular HGB CONC 32.3 g/dL (32.0-36.0); Mean Corpuscular Hemoglobin 34.2 pg (27.0-31.0); Mean Platelet Volume 9.5 fL (7.4-10.4); Monocytes 7 % (0-10); Neutrophil 56 % (42-75); Platelet Count 44 thou/uL (130-400); Platelet Morphology Comment Appears Decreased; RBC Distribution Width 13.5 % (11.5-14.5); Red Blood Cell (RBC) Count 3.92 mill/uL (4.70-6.10); White Blood Cell (WBC) Count 7.5 thou/uL (4.8-10.8)
[2022-04-13 07:45] LABS: Actual Bicarbonate (HCO3a) 22.2 mEq/L (22-28); Base Excess (BEa) -1.5 mEq/L (-2.0 to +3.0); CO2 Tension 34.4 mmHg (35.0-45.0); Calcium, Ionized (arterial) 1.13 mmol/L (1.12-1.30); Carboxyhemoglobin (COHb) 1.1 gm% (0.0-3.0); Hemoglobin (Hb) 13.8 g/dL (14.0-18.0); Potassium - ABG Lab 3.86 mmol/L (3.70-5.30); pH, Arterial 7.43 (7.35-7.45)
[2022-04-13 07:46] LABS: Puncture Site RBA
[2022-04-13] MEDS: Amiodarone 450 MG in Dextrose 5% in Water 250 ML IVPB SCH ×2 (08:01→23:37)
[2022-04-13] MEDS: Famotidine 40 MG/4 ML VIAL SLOW IVP SCH (09:25)
[2022-04-13] MEDS: Famotidine 20 MG TAB PER TUBE SCH (09:28)
[2022-04-13] MEDS: fentaNYL Citrate-0.9 % NaCl/PF 100 ML IV SCH (13:07)
[2022-04-13] MEDS: Hydrocortisone Sod Succ/PF 100 mg/2 ml Vial IVP SCH ×2 (13:12→17:35)
[2022-04-13] MEDS: Propofol 1,000 MG/100 ML VIAL IV PRN (17:35)
[2022-04-13] MEDS: Senokot S 8.6-50 MG TAB PO SCH (20:23)
[2022-04-14] MEDS ORDERED: Hydrocortisone Sod Succ/PF 100 mg/2 ml Vial ONE (00:03)
[2022-04-14] MEDS: Hydrocortisone Sod Succ/PF 100 mg/2 ml Vial IVP SCH ×5 (00:08→23:42)
[2022-04-14 05:21] LABS: ALT (SGPT) 395 U/L (8-55); AST (SGOT) 191 U/L (5-34); Albumin 2.2 g/dL (3.5-5.0); Alkaline Phosphatase 86 U/L (40-110); Anion Gap 11 mmol/L (10-20); BUN (Urea Nitrogen) 39 mg/dL (8.4-25.7); Bilirubin, Total 1.9 mg/dL (0.2-1.2); CK (CPK) 314 U/L (30-200); Calc. Creatinine Clearance 54 mL/min (70-130); Calcium 8.2 mg/dL (7.8-10.44); Carbon Dioxide 27 mmol/L (22-29); Chloride 110 mmol/L (98-107); Glucose 146 mg/dL (70-105); Potassium 3.9 mmol/L (3.5-5.1); Protein, Total 5.2 g/dL (6.0-8.3); Sodium 144 mmol/L (136-145)
[2022-04-14 05:22] LABS: INR-International Normal Ratio 1.2; Prothrombin Time 15.2 sec (12.0-14.7)
[2022-04-14 05:23] LABS: INR-International Normal Ratio 1.2; PTT 38.9 sec (22.9-36.1); Prothrombin Time 15.4 sec (12.0-14.7)
[2022-04-14 05:24] LABS: Fibrinogen 698 mg/dL (253-463); PTT 41.7 sec (22.9-36.1)
[2022-04-14] MEDS: Propofol 1,000 MG/100 ML VIAL IV PRN ×2 (05:28→15:51)
[2022-04-14 05:33] LABS: D-Dimer Test 17.78 *mcg/mL (0.27-0.43)
[2022-04-14 05:37] LABS: Band 28 % (5-11); Hemoglobin 12.4 g/dL (14.0-18.0); Lymphocytes 5 % (21-51); MDiff Complete? YES; Macrocytosis MODERATE=16-30 cells (100X) (0-5/hpf); Mean Corpuscular HGB CONC 32.5 g/dL (32.0-36.0); Mean Corpuscular Hemoglobin 34.4 pg (27.0-31.0); Monocytes 1 % (0-10); Neutrophil 66 % (42-75); Platelet Count 38 thou/uL (130-400); Platelet Morphology Comment Appears Decreased; RBC Distribution Width 13.7 % (11.5-14.5); Red Blood Cell (RBC) Count 3.62 mill/uL (4.70-6.10); Schistocytes SLIGHT = 2-5 cells (100X) (0-1/hpf); Target Cells SLIGHT = 2-5 cells (100X) (0-1/hpf); Tear Drops SLIGHT = 2-5 cells (100X) (0-1/hpf); White Blood Cell (WBC) Count 10.4 thou/uL (4.8-10.8)
[2022-04-14 05:53] LABS: Platelet Count 38 thou/uL (130-400)
[2022-04-14] MEDS: Senokot S 8.6-50 MG TAB PO SCH ×2 (08:58→21:08)
[2022-04-14] MEDS: Famotidine 20 MG TAB PER TUBE SCH (08:58)
[2022-04-14] MEDS: Polyethylene Glycol 3350 17 GM Packet PER TUBE SCH (08:58)
[2022-04-14 09:00] LABS: Actual Bicarbonate (HCO3v) 25 mEq/L (22-28); Base Excess 0.8 mEq/L (-2.0 to +3.0); Calcium, Ionized (venous) 1.14 mmol/L (1.16-1.32); Chloride (VBG) 109 mmol/L (98-106); Hemoglobin (Hb) 13.1 g/dL (13.1-17.2); Potassium (VBG) 3.88 mmol/L (3.70-5.30); Sodium 140.7 mmol/L (133-146); pH (venous) 7.44 (7.32-7.43)
[2022-04-14] MEDS: Lorazepam 2 MG/ML VIAL SLOW IVP PRN (09:05)
[2022-04-14] MEDS ORDERED: LEVOFLOXACIN IVPB PRN (09:33)
[2022-04-14] MEDS: fentaNYL Citrate-0.9 % NaCl/PF 100 ML IV SCH (10:22)
[2022-04-14] MEDS: Amiodarone 450 MG in Dextrose 5% in Water 250 ML IVPB SCH (14:06)
[2022-04-15] MEDS: Propofol 1,000 MG/100 ML VIAL IV PRN ×3 (03:03→22:59)
[2022-04-15 04:38] LABS: ALT (SGPT) 286 U/L (8-55); AST (SGOT) 96 U/L (5-34); Albumin 2.4 g/dL (3.5-5.0); Alkaline Phosphatase 90 U/L (40-110); Anion Gap 13 mmol/L (10-20); BUN (Urea Nitrogen) 44 mg/dL (8.4-25.7); Bilirubin, Total 1.4 mg/dL (0.2-1.2); Calc. Creatinine Clearance 60 mL/min (70-130); Calcium 8.3 mg/dL (7.8-10.44); Carbon Dioxide 25 mmol/L (22-29); Chloride 110 mmol/L (98-107); Globulin 3.5 g/dL (2.4-3.5); Glucose 134 mg/dL (70-105); Potassium 3.6 mmol/L (3.5-5.1); Protein, Total 5.9 g/dL (6.0-8.3); Sodium 144 mmol/L (136-145)
[2022-04-15 05:12] LABS: Band 19 % (5-11); Hemoglobin 12.4 g/dL (14.0-18.0); Hypochromia SLIGHT = 6-15 cells (100X) (0-5/hpf); Lymphocytes 3 % (21-51); MDiff Complete? YES; Macrocytosis SLIGHT = 6-15 cells (100X) (0-5/hpf); Mean Corpuscular HGB CONC 32.3 g/dL (32.0-36.0); Mean Corpuscular Hemoglobin 34.1 pg (27.0-31.0); Mean Platelet Volume 9.8 fL (7.4-10.4); Monocytes 9 % (0-10); Neutrophil 69 % (42-75); Platelet Count 45 thou/uL (130-400); Platelet Morphology Comment Appears Decreased; RBC Distribution Width 13.8 % (11.5-14.5); Red Blood Cell (RBC) Count 3.64 mill/uL (4.70-6.10); White Blood Cell (WBC) Count 13.4 thou/uL (4.8-10.8)
[2022-04-15] MEDS: fentaNYL Citrate-0.9 % NaCl/PF 100 ML IV SCH (06:17)
[2022-04-15] MEDS: Hydrocortisone Sod Succ/PF 100 mg/2 ml Vial IVP SCH ×4 (06:17→22:59)
[2022-04-15 07:12] LABS: Actual Bicarbonate (HCO3a) 21.4 mEq/L (22-28); Base Excess (BEa) -1.2 mEq/L (-2.0 to +3.0); CO2 Tension 29.6 mmHg (35.0-45.0); Calcium, Ionized (arterial) 1.15 mmol/L (1.12-1.30); Carboxyhemoglobin (COHb) 0.8 gm% (0.0-3.0); O2 Tension (PaO2), arterial 79.8 mmHg (> 80.0); Potassium - ABG Lab 3.63 mmol/L (3.70-5.30); pH, Arterial 7.48 (7.35-7.45)
[2022-04-15 07:26] LABS: Puncture Site RRA
[2022-04-15] MEDS: Polyethylene Glycol 3350 17 GM Packet PER TUBE SCH (07:46)
[2022-04-15] MEDS: Famotidine 20 MG TAB PER TUBE SCH (07:46)
[2022-04-15] MEDS: Senokot S 8.6-50 MG TAB PO SCH ×2 (07:46→22:59)
[2022-04-15] MEDS: Lorazepam 2 MG/ML VIAL SLOW IVP PRN ×2 (09:00→14:08)
[2022-04-15] MEDS ORDERED: Iopamidol 370 76% 50 ML VIAL FS ONE (10:31)
[2022-04-15] MEDS ORDERED: Lidocaine 1% PF 5 ML VIAL ONE (12:56)
[2022-04-16] MEDS: fentaNYL Citrate-0.9 % NaCl/PF 100 ML IV SCH ×2 (00:14→20:28)
[2022-04-16 04:27] LABS: Hemoglobin 12.3 g/dL (14.0-18.0); Mean Corpuscular HGB CONC 32.2 g/dL (32.0-36.0); Mean Corpuscular Hemoglobin 33.7 pg (27.0-31.0); Mean Platelet Volume 9.5 fL (7.4-10.4); Platelet Count 70 thou/uL (130-400); RBC Distribution Width 13.8 % (11.5-14.5); Red Blood Cell (RBC) Count 3.64 mill/uL (4.70-6.10); White Blood Cell (WBC) Count 14.8 thou/uL (4.8-10.8)
[2022-04-16 04:40] LABS: ALT (SGPT) 169 U/L (8-55); AST (SGOT) 53 U/L (5-34); Albumin 2.2 g/dL (3.5-5.0); Alkaline Phosphatase 82 U/L (40-110); Anion Gap 11 mmol/L (10-20); BUN (Urea Nitrogen) 39 mg/dL (8.4-25.7); Calc. Creatinine Clearance 63 mL/min (70-130); Calcium 7.6 mg/dL (7.8-10.44); Carbon Dioxide 25 mmol/L (22-29); Chloride 113 mmol/L (98-107); Glucose 142 mg/dL (70-105); Potassium 3.3 mmol/L (3.5-5.1); Protein, Total 5.2 g/dL (6.0-8.3); Sodium 146 mmol/L (136-145)
[2022-04-16 05:03] LABS: Band 7 % (5-11); Lymphocytes 4 % (21-51); MDiff Complete? YES; Monocytes 8 % (0-10); Neutrophil 81 % (42-75); Nucleated RBC 1 % (0); Platelet Morphology Comment Appears Decreased
[2022-04-16] MEDS: Hydrocortisone Sod Succ/PF 100 mg/2 ml Vial IVP SCH ×4 (06:08→22:54)
[2022-04-16] MEDS: Propofol 1,000 MG/100 ML VIAL IV PRN ×2 (06:10→18:04)
[2022-04-16] MEDS ORDERED: Potassium Chloride 20 MEQ in Premix Bag 1 BAG IVPB SCH (08:00)
[2022-04-16] MEDS: Senokot S 8.6-50 MG TAB PO SCH ×2 (08:37→19:30)
[2022-04-16] MEDS: Famotidine 20 MG TAB PER TUBE SCH (08:37)
[2022-04-16] MEDS: Polyethylene Glycol 3350 17 GM Packet PER TUBE SCH (09:38)
[2022-04-16 10:56] LABS: Actual Bicarbonate (HCO3v) 26 mEq/L (22-28); Base Excess 3.5 mEq/L (-2.0 to +3.0); Calcium, Ionized (venous) 1.07 mmol/L (1.16-1.32); Chloride (VBG) 113 mmol/L (98-106); Sodium 145.6 mmol/L (133-146)
[2022-04-16] MEDS ORDERED: Electrolyte Replacement Protocol 1 EACH FS PRN (14:00)
[2022-04-16] MEDS ORDERED: Magnesium 2 GM/50 ML(in water) 2 GM in Premix Bag 1 BAG IVPB SCH (15:45)
[2022-04-16] MEDS: Nicotine 14 MG PATCH TD SCH (16:12)
[2022-04-16] MEDS: Lorazepam 2 MG/ML VIAL SLOW IVP PRN ×2 (16:13→23:35)
[2022-04-16] MEDS: clonazePAM 0.5 MG TAB PO SCH (19:30)
[2022-04-17] MEDS: Propofol 1,000 MG/100 ML VIAL IV PRN ×2 (00:48→05:54)
[2022-04-17] MEDS: Lorazepam 2 MG/ML VIAL SLOW IVP PRN ×5 (01:06→23:39)
[2022-04-17] MEDS: Hydrocortisone Sod Succ/PF 100 mg/2 ml Vial IVP SCH ×3 (05:04→22:17)
[2022-04-17 06:18] LABS: Hemoglobin 11.6 g/dL (14.0-18.0); Mean Corpuscular HGB CONC 32.2 g/dL (32.0-36.0); Mean Corpuscular Hemoglobin 34.1 pg (27.0-31.0); Mean Platelet Volume 9.4 fL (7.4-10.4); Platelet Count 127 thou/uL (130-400); RBC Distribution Width 14.2 % (11.5-14.5); White Blood Cell (WBC) Count 13.6 thou/uL (4.8-10.8)
[2022-04-17 06:36] LABS: ALT (SGPT) 107 U/L (8-55); AST (SGOT) 43 U/L (5-34); Albumin 2.1 g/dL (3.5-5.0); Alkaline Phosphatase 72 U/L (40-110); Anion Gap 11 mmol/L (10-20); BUN (Urea Nitrogen) 36 mg/dL (8.4-25.7); Bilirubin, Total 0.8 mg/dL (0.2-1.2); Calc. Creatinine Clearance 67 mL/min (70-130); Calcium 7.9 mg/dL (7.8-10.44); Carbon Dioxide 27 mmol/L (22-29); Chloride 114 mmol/L (98-107); Globulin 3.7 g/dL (2.4-3.5); Glucose 143 mg/dL (70-105); Potassium 3.6 mmol/L (3.5-5.1); Protein, Total 5.8 g/dL (6.0-8.3); Sodium 148 mmol/L (136-145)
[2022-04-17 06:39] LABS: Band 20 % (5-11); Lymphocytes 11 % (21-51); MDiff Complete? YES; Monocytes 4 % (0-10); Neutrophil 65 % (42-75); Platelet Morphology Comment Appears Decreased
[2022-04-17 08:07] LABS: Actual Bicarbonate (HCO3a) 25.6 mEq/L (22-28); Base Excess (BEa) 2.5 mEq/L (-2.0 to +3.0); CO2 Tension 34.5 mmHg (35.0-45.0); Calcium, Ionized (arterial) 1.12 mmol/L (1.12-1.30); Carboxyhemoglobin (COHb) 0.5 gm% (0.0-3.0); Hemoglobin (Hb) 12.4 g/dL (14.0-18.0); Potassium - ABG Lab 3.41 mmol/L (3.70-5.30); pH, Arterial 7.49 (7.35-7.45)
[2022-04-17 08:13] LABS: Puncture Site RRA
[2022-04-17 08:14] LABS: ALV-art Gradient 184.075 mmHg (0-20)
[2022-04-17] MEDS: Polyethylene Glycol 3350 17 GM Packet PER TUBE SCH (08:15)
[2022-04-17] MEDS: Senokot S 8.6-50 MG TAB PO SCH ×2 (08:15→22:17)
[2022-04-17] MEDS: clonazePAM 0.5 MG TAB PO SCH ×2 (08:15→22:17)
[2022-04-17] MEDS: Famotidine 20 MG TAB PER TUBE SCH (08:15)
[2022-04-17] MEDS: Nicotine 14 MG PATCH TD SCH (15:52)
[2022-04-18] MEDS: fentaNYL Citrate-0.9 % NaCl/PF 100 ML IV SCH ×3 (00:31→23:20)
[2022-04-18 05:20] LABS: #Lymphocytes 0.6 thou/uL (1.20-3.40); #Monocytes 0.6 thou/uL (0.11-0.59); #Neutrophils 10.7 thou/uL (1.40-6.50); %Eosinophils 0.1 % (0.0-10.0); %Lymphocytes 5.2 % (21.0-51.0); %Neutrophils 89.7 % (42.0-75.0); Hemoglobin 10.8 g/dL (14.0-18.0); Mean Corpuscular HGB CONC 31.4 g/dL (32.0-36.0); Mean Corpuscular Hemoglobin 33.6 pg (27.0-31.0); Mean Platelet Volume 8.2 fL (7.4-10.4); Platelet Count 172 thou/uL (130-400); RBC Distribution Width 14.3 % (11.5-14.5); Red Blood Cell (RBC) Count 3.22 mill/uL (4.70-6.10); White Blood Cell (WBC) Count 11.9 thou/uL (4.8-10.8)
[2022-04-18] MEDS: Hydrocortisone Sod Succ/PF 100 mg/2 ml Vial IVP SCH ×3 (06:36→22:21)
[2022-04-18 07:47] LABS: Base Excess (BEa) 4.3 mEq/L (-2.0 to +3.0); CO2 Tension 38.4 mmHg (35.0-45.0); Calcium, Ionized (arterial) 1.14 mmol/L (1.12-1.30); Hemoglobin (Hb) 11.2 g/dL (14.0-18.0); O2 Tension (PaO2), arterial 66.1 mmHg (> 80.0); Potassium - ABG Lab 3.78 mmol/L (3.70-5.30); pH, Arterial 7.48 (7.35-7.45)
[2022-04-18 07:56] LABS: Puncture Site RBA
[2022-04-18] MEDS ORDERED: HumaLOG 300 UNITS/3 ML VIAL SC PRN (08:44)
[2022-04-18] MEDS ORDERED: Dextrose 5% in Water 1,000 ML IV PRN (08:44)
[2022-04-18] MEDS: Famotidine 20 MG TAB PER TUBE SCH (09:25)
[2022-04-18] MEDS: Polyethylene Glycol 3350 17 GM Packet PER TUBE SCH (09:25)
[2022-04-18] MEDS: clonazePAM 0.5 MG TAB PO SCH ×2 (09:25→20:56)
[2022-04-18] MEDS: Senokot S 8.6-50 MG TAB PO SCH ×2 (09:25→20:57)
[2022-04-18] MEDS: Enoxaparin Sodium 80 MG/0.8 ML SYRINGE SC SCH ×2 (09:25→20:56)
[2022-04-18] MEDS: Lorazepam 2 MG/ML VIAL SLOW IVP PRN ×3 (10:34→23:23)
[2022-04-18] MEDS: Nicotine 14 MG PATCH TD SCH (13:50)
[2022-04-19] MEDS: Lorazepam 2 MG/ML VIAL SLOW IVP PRN ×5 (02:58→19:58)
[2022-04-19 04:55] LABS: Anion Gap 10 mmol/L (10-20); BUN (Urea Nitrogen) 36 mg/dL (8.4-25.7); Calc. Creatinine Clearance 79 mL/min (70-130); Calcium 8.1 mg/dL (7.8-10.44); Carbon Dioxide 25 mmol/L (22-29); Chloride 119 mmol/L (98-107); Glucose 163 mg/dL (70-105); Magnesium 2.3 mg/dL (1.6-2.6); Phosphorus 3.2 mg/dL (2.3-4.7); Potassium 3.8 mmol/L (3.5-5.1); Sodium 150 mmol/L (136-145)
[2022-04-19 04:56] LABS: Band 29 % (5-11); Hemoglobin 11.8 g/dL (14.0-18.0); Lymphocytes 3 % (21-51); MDiff Complete? YES; Mean Corpuscular HGB CONC 31.6 g/dL (32.0-36.0); Mean Platelet Volume 8.4 fL (7.4-10.4); Monocytes 1 % (0-10); Neutrophil 67 % (42-75); Nucleated RBC 1 % (0); Platelet Count 215 thou/uL (130-400); RBC Distribution Width 14.1 % (11.5-14.5); Red Blood Cell (RBC) Count 3.48 mill/uL (4.70-6.10); White Blood Cell (WBC) Count 14.2 thou/uL (4.8-10.8)
[2022-04-19] MEDS: Hydrocortisone Sod Succ/PF 100 mg/2 ml Vial IVP SCH ×3 (06:28→21:38)
[2022-04-19 07:28] LABS: Actual Bicarbonate (HCO3a) 28.2 mEq/L (22-28); Base Excess (BEa) 4.7 mEq/L (-2.0 to +3.0); CO2 Tension 37.8 mmHg (35.0-45.0); Calcium, Ionized (arterial) 1.18 mmol/L (1.12-1.30); Carboxyhemoglobin (COHb) 1.1 gm% (0.0-3.0); Hemoglobin (Hb) 12.9 g/dL (14.0-18.0); Potassium - ABG Lab 3.71 mmol/L (3.70-5.30); pH, Arterial 7.49 (7.35-7.45)
[2022-04-19 07:31] LABS: O2 Tension (PaO2), arterial 45.6 mmHg (> 80.0); Puncture Site RRA
[2022-04-19] MEDS ORDERED: Meropenem 1 GM in Sodium Chloride 0.9% 100 ML IVPB SCH (08:45)
[2022-04-19] MEDS: Dextrose 5% in Water 1,000 ML IV SCH ×2 (09:07→21:48)
[2022-04-19] MEDS: clonazePAM 0.5 MG TAB PO SCH ×2 (09:07→21:38)
[2022-04-19] MEDS: Enoxaparin Sodium 80 MG/0.8 ML SYRINGE SC SCH ×2 (09:07→21:37)
[2022-04-19] MEDS: Polyethylene Glycol 3350 17 GM Packet PER TUBE SCH (09:07)
[2022-04-19] MEDS: Senokot S 8.6-50 MG TAB PO SCH ×2 (09:08→21:38)
[2022-04-19] MEDS: Famotidine 20 MG TAB PER TUBE SCH (09:08)
[2022-04-19] MEDS ORDERED: Ipratropium Bromide 2.5 ml Neb NEB SCH (10:30)
[2022-04-19] MEDS: fentaNYL Citrate-0.9 % NaCl/PF 100 ML IV SCH ×2 (11:26→23:24)
[2022-04-19] MEDS: Furosemide 40 MG/4 ML VIAL SLOW IVP SCH (11:28)
[2022-04-19] MEDS: VANCOMYCIN 1.25 GM/250 ML BAG 1.25 GM in Premix Bag 1 BAG IVPB SCH (12:35)
[2022-04-19] MEDS: Nicotine 14 MG PATCH TD SCH (13:45)
[2022-04-19] MEDS: Meropenem 1 GM in Sodium Chloride 0.9% 100 ML IVPB SCH (16:17)
[2022-04-19] MEDS: HumaLOG 300 UNITS/3 ML VIAL SC PRN (17:55)
[2022-04-20] MEDS: VANCOMYCIN 1.25 GM/250 ML BAG 1.25 GM in Premix Bag 1 BAG IVPB SCH ×2 (00:04→11:45)
[2022-04-20] MEDS: HumaLOG 300 UNITS/3 ML VIAL SC PRN ×3 (00:13→18:14)
[2022-04-20] MEDS: Meropenem 1 GM in Sodium Chloride 0.9% 100 ML IVPB SCH ×3 (01:30→15:52)
[2022-04-20] MEDS: Lorazepam 2 MG/ML VIAL SLOW IVP PRN ×4 (04:06→21:32)
[2022-04-20 04:21] LABS: #Basophils 0.1 thou/uL (0.0-0.2); #Lymphocytes 0.4 thou/uL (1.20-3.40); #Monocytes 0.5 thou/uL (0.11-0.59); #Neutrophils 11.2 thou/uL (1.40-6.50); %Basophils 0.9 % (0.0-1.0); %Eosinophils 0.2 % (0.0-10.0); %Monocytes 4.2 % (0.0-10.0); %Neutrophils 91.6 % (42.0-75.0); Hemoglobin 11.4 g/dL (14.0-18.0); Mean Corpuscular HGB CONC 32.5 g/dL (32.0-36.0); Mean Corpuscular Hemoglobin 34.8 pg (27.0-31.0); Mean Platelet Volume 8.5 fL (7.4-10.4); Platelet Count 204 thou/uL (130-400); Red Blood Cell (RBC) Count 3.27 mill/uL (4.70-6.10); White Blood Cell (WBC) Count 12.2 thou/uL (4.8-10.8)
[2022-04-20 05:46] LABS: Calcium 7.7 mg/dL (7.8-10.44); Chloride 112 mmol/L (98-107); Potassium 3.6 mmol/L (3.5-5.1); Sodium 144 mmol/L (136-145)
[2022-04-20 05:47] LABS: Anion Gap 8 mmol/L (10-20); Carbon Dioxide 28 mmol/L (22-29); Glucose 176 mg/dL (70-105)
[2022-04-20] MEDS: Hydrocortisone Sod Succ/PF 100 mg/2 ml Vial IVP SCH ×3 (06:03→21:35)
[2022-04-20 06:24] LABS: Calc. Creatinine Clearance 81 mL/min (70-130)
[2022-04-20 06:25] LABS: BUN (Urea Nitrogen) 35 mg/dL (8.4-25.7)
[2022-04-20 07:34] LABS: Actual Bicarbonate (HCO3a) 25.2 mEq/L (22-28); Base Excess (BEa) 1.2 mEq/L (-2.0 to +3.0); CO2 Tension 37.9 mmHg (35.0-45.0); Calcium, Ionized (arterial) 1.17 mmol/L (1.12-1.30); Carboxyhemoglobin (COHb) 1.2 gm% (0.0-3.0); Hemoglobin (Hb) 16.2 g/dL (14.0-18.0); Potassium - ABG Lab 3.48 mmol/L (3.70-5.30); pH, Arterial 7.44 (7.35-7.45)
[2022-04-20 07:55] LABS: O2 Tension (PaO2), arterial 57.8 mmHg (> 80.0); Puncture Site RBA
[2022-04-20 07:56] LABS: ALV-art Gradient 322.625 mmHg (0-20)
[2022-04-20] MEDS: Enoxaparin Sodium 80 MG/0.8 ML SYRINGE SC SCH (08:21)
[2022-04-20] MEDS: clonazePAM 0.5 MG TAB PO SCH ×2 (08:22→20:17)
[2022-04-20] MEDS: Senokot S 8.6-50 MG TAB PO SCH ×2 (08:22→20:13)
[2022-04-20] MEDS: Polyethylene Glycol 3350 17 GM Packet PER TUBE SCH (08:22)
[2022-04-20] MEDS: Famotidine 20 MG TAB PER TUBE SCH (08:22)
[2022-04-20] MEDS: Furosemide 40 MG/4 ML VIAL SLOW IVP SCH (11:45)
[2022-04-20] MEDS: fentaNYL Citrate-0.9 % NaCl/PF 100 ML IV SCH ×2 (12:29→22:52)
[2022-04-20] MEDS: Nicotine 14 MG PATCH TD SCH (14:50)
[2022-04-20 23:49] LABS: Vancomycin, Trough 16.5 ug/mL
[2022-04-21] MEDS: VANCOMYCIN 1.25 GM/250 ML BAG 1.25 GM in Premix Bag 1 BAG IVPB SCH ×2 (00:35→13:23)
[2022-04-21] MEDS: Meropenem 1 GM in Sodium Chloride 0.9% 100 ML IVPB SCH ×3 (00:47→17:20)
[2022-04-21 04:34] LABS: #Lymphocytes 0.5 thou/uL (1.20-3.40); #Monocytes 0.6 thou/uL (0.11-0.59); %Basophils 0.1 % (0.0-1.0); %Eosinophils 0.2 % (0.0-10.0); %Monocytes 6.1 % (0.0-10.0); %Neutrophils 88.7 % (42.0-75.0); Mean Corpuscular HGB CONC 31.7 g/dL (32.0-36.0); Mean Corpuscular Hemoglobin 33.9 pg (27.0-31.0); Mean Platelet Volume 8.6 fL (7.4-10.4); Platelet Count 234 thou/uL (130-400); Red Blood Cell (RBC) Count 3.23 mill/uL (4.70-6.10); White Blood Cell (WBC) Count 10.2 thou/uL (4.8-10.8)
[2022-04-21 05:04] LABS: Anion Gap 11 mmol/L (10-20); BUN (Urea Nitrogen) 38 mg/dL (8.4-25.7); Calc. Creatinine Clearance 90 mL/min (70-130); Calcium 7.9 mg/dL (7.8-10.44); Carbon Dioxide 28 mmol/L (22-29); Chloride 112 mmol/L (98-107); Glucose 116 mg/dL (70-105); Potassium 3.6 mmol/L (3.5-5.1); Sodium 147 mmol/L (136-145)
[2022-04-21] MEDS ORDERED: Lidocaine 2% 20 ml MDV SC SCH (06:00)
[2022-04-21] MEDS ORDERED: Vecuronium 10 MG VIAL IVP SCH (06:00)
[2022-04-21] MEDS ORDERED: Lorazepam 2 MG/ML VIAL SLOW IVP SCH (06:00)
[2022-04-21] MEDS ORDERED: CEFAZOLIN 2 GM in Sodium Chloride 0.9% 100 ML IVPB SCH (06:00)
[2022-04-21] MEDS ORDERED: CEFAZOLIN 1 GM VIAL SLOW IVP SCH (06:00)
[2022-04-21] MEDS: Hydrocortisone Sod Succ/PF 100 mg/2 ml Vial IVP SCH ×3 (06:13→21:45)
[2022-04-21] MEDS: Lorazepam 2 MG/ML VIAL SLOW IVP PRN (06:13)
[2022-04-21 07:24] LABS: Actual Bicarbonate (HCO3a) 27.3 mEq/L (22-28); Base Excess (BEa) 3.7 mEq/L (-2.0 to +3.0); CO2 Tension 37.9 mmHg (35.0-45.0); Calcium, Ionized (arterial) 1.14 mmol/L (1.12-1.30); Carboxyhemoglobin (COHb) 0.3 gm% (0.0-3.0); Hemoglobin (Hb) 11.6 g/dL (14.0-18.0); O2 Tension (PaO2), arterial 74.9 mmHg (> 80.0); Potassium - ABG Lab 3.44 mmol/L (3.70-5.30); pH, Arterial 7.48 (7.35-7.45)
[2022-04-21 07:27] LABS: ALV-art Gradient 305.525 mmHg (0-20); Puncture Site RBA
[2022-04-21] MEDS ORDERED: Midazolam HCl 2 mg/2 ml Vial SLOW IVP SCH (09:30)
[2022-04-21] MEDS: Polyethylene Glycol 3350 17 GM Packet PER TUBE SCH (10:16)
[2022-04-21] MEDS: Senokot S 8.6-50 MG TAB PO SCH ×2 (10:17→21:45)
[2022-04-21] MEDS: Famotidine 20 MG TAB PER TUBE SCH (10:19)
[2022-04-21] MEDS: clonazePAM 0.5 MG TAB PO SCH (10:20)
[2022-04-21] MEDS ORDERED: Scopolamine 1.5 mg/72 hour Patch TD SCH (11:00)
[2022-04-21] MEDS ORDERED: Lidocaine 1% w/Epinephrine 1:100K 20 ML VIAL IJ SCH (11:06)
[2022-04-21] MEDS ORDERED: fentaNYL Citrate/PF 2,000 MCG in Sodium Chloride 0.9% 60 ML IV PRN (11:07)
[2022-04-21] MEDS: Furosemide 40 MG/4 ML VIAL SLOW IVP SCH (11:40)
[2022-04-21] MEDS ORDERED: Xylocaine 1% w/ Epi 1:100K 10 ML VIAL ONE (11:51)
[2022-04-21] MEDS ORDERED: Propofol 1,000 MG/100 ML VIAL IV ONE (12:02)
[2022-04-21] MEDS ORDERED: Propofol BOLUS 1,000 MG/100 ML VIAL IV PRN (12:15)
[2022-04-21] MEDS ORDERED: DISCONTINUE PREVIOUS NARCOTIC PAIN MEDICATIONS AND BENZODIAZEPINES FS SCH (12:15)
[2022-04-21] MEDS ORDERED: Fentanyl BOLUS 250 ML IVPB PRN (12:15)
[2022-04-21] MEDS: fentaNYL Citrate-0.9 % NaCl/PF 100 ML IV SCH (12:18)
[2022-04-21] MEDS ORDERED: Midazolam HCl 2 mg/2 ml Vial ONE (12:21)
[2022-04-21] MEDS: Propofol 1,000 MG/100 ML VIAL IV PRN (13:15)
[2022-04-21] MEDS: Nicotine 14 MG PATCH TD SCH (13:55)
[2022-04-22] MEDS: Meropenem 1 GM in Sodium Chloride 0.9% 100 ML IVPB SCH ×3 (00:15→16:51)
[2022-04-22] MEDS: VANCOMYCIN 1.25 GM/250 ML BAG 1.25 GM in Premix Bag 1 BAG IVPB SCH ×2 (00:31→14:31)
[2022-04-22] MEDS: fentaNYL Citrate-0.9 % NaCl/PF 100 ML IV SCH ×3 (01:49→23:53)
[2022-04-22] MEDS: Lorazepam 2 MG/ML VIAL SLOW IVP PRN (02:49)
[2022-04-22 03:56] LABS: #Lymphocytes 0.7 thou/uL (1.20-3.40); #Monocytes 0.6 thou/uL (0.11-0.59); #Neutrophils 5.2 thou/uL (1.40-6.50); %Basophils 0.1 % (0.0-1.0); %Eosinophils 0.3 % (0.0-10.0); %Lymphocytes 10.8 % (21.0-51.0); %Monocytes 8.4 % (0.0-10.0); %Neutrophils 80.4 % (42.0-75.0); Hemoglobin 10.3 g/dL (14.0-18.0); Mean Corpuscular Hemoglobin 33.9 pg (27.0-31.0); Mean Platelet Volume 8.1 fL (7.4-10.4); Platelet Count 235 thou/uL (130-400); Red Blood Cell (RBC) Count 3.04 mill/uL (4.70-6.10); White Blood Cell (WBC) Count 6.5 thou/uL (4.8-10.8)
[2022-04-22 04:15] LABS: Anion Gap 9 mmol/L (10-20); BUN (Urea Nitrogen) 37 mg/dL (8.4-25.7); Calc. Creatinine Clearance 89 mL/min (70-130); Calcium 7.5 mg/dL (7.8-10.44); Carbon Dioxide 28 mmol/L (22-29); Chloride 114 mmol/L (98-107); Glucose 84 mg/dL (70-105); Potassium 3.1 mmol/L (3.5-5.1); Sodium 148 mmol/L (136-145)
[2022-04-22] MEDS ORDERED: Potassium Bicarbonate/Cit Ac 20 MEQ TAB PER TUBE SCH (05:45)
[2022-04-22] MEDS: Hydrocortisone Sod Succ/PF 100 mg/2 ml Vial IVP SCH ×2 (05:49→14:23)
[2022-04-22] MEDS: Famotidine 20 MG TAB PER TUBE SCH (07:45)
[2022-04-22] MEDS: Polyethylene Glycol 3350 17 GM Packet PER TUBE SCH (07:46)
[2022-04-22] MEDS: Senokot S 8.6-50 MG TAB PO SCH ×2 (07:46→21:41)
[2022-04-22] MEDS ORDERED: Enoxaparin Sodium 80 MG/0.8 ML SYRINGE SC SCH (09:00)
[2022-04-22] MEDS: Furosemide 40 MG/4 ML VIAL SLOW IVP SCH (11:25)
[2022-04-22] MEDS: Propofol 1,000 MG/100 ML VIAL IV PRN (11:25)
[2022-04-22] MEDS: Nicotine 14 MG PATCH TD SCH (14:40)
[2022-04-22] MEDS ORDERED: Vancomycin 1 GM in Premix Bag 1 BAG IVPB SCH (15:00)
[2022-04-22] MEDS: Enoxaparin Sodium 60 MG/0.6 ML SYRINGE SC SCH (21:41)
[2022-04-23] MEDS: Propofol 1,000 MG/100 ML VIAL IV PRN ×2 (02:06→13:15)
[2022-04-23] MEDS: Lorazepam 2 MG/ML VIAL SLOW IVP PRN ×2 (02:42→12:31)
[2022-04-23 03:35] LABS: #Lymphocytes 0.8 thou/uL (1.20-3.40); #Monocytes 0.5 thou/uL (0.11-0.59); #Neutrophils 4.8 thou/uL (1.40-6.50); %Basophils 0.1 % (0.0-1.0); %Eosinophils 0.5 % (0.0-10.0); %Lymphocytes 12.7 % (21.0-51.0); %Monocytes 8.8 % (0.0-10.0); %Neutrophils 77.9 % (42.0-75.0); Hemoglobin 10.8 g/dL (14.0-18.0); Mean Corpuscular HGB CONC 33.4 g/dL (32.0-36.0); Mean Corpuscular Hemoglobin 35.4 pg (27.0-31.0); Mean Platelet Volume 8.2 fL (7.4-10.4); Platelet Count 275 thou/uL (130-400); RBC Distribution Width 13.8 % (11.5-14.5); Red Blood Cell (RBC) Count 3.07 mill/uL (4.70-6.10); White Blood Cell (WBC) Count 6.1 thou/uL (4.8-10.8)
[2022-04-23 03:56] LABS: Anion Gap 10 mmol/L (10-20); BUN (Urea Nitrogen) 39 mg/dL (8.4-25.7); Calc. Creatinine Clearance 82 mL/min (70-130); Calcium 7.9 mg/dL (7.8-10.44); Carbon Dioxide 28 mmol/L (22-29); Chloride 113 mmol/L (98-107); Glucose 115 mg/dL (70-105); Potassium 3.1 mmol/L (3.5-5.1); Sodium 148 mmol/L (136-145)
[2022-04-23] MEDS ORDERED: Potassium Bicarbonate/Cit Ac 20 MEQ TAB PER TUBE SCH (04:15)
[2022-04-23] MEDS: Enoxaparin Sodium 60 MG/0.6 ML SYRINGE SC SCH ×2 (08:55→22:00)
[2022-04-23] MEDS: Senokot S 8.6-50 MG TAB PO SCH ×2 (08:56→22:00)
[2022-04-23] MEDS: Polyethylene Glycol 3350 17 GM Packet PER TUBE SCH (08:56)
[2022-04-23] MEDS ORDERED: Lansoprazole 3 MG/ML ORAL SUSPENSION PER TUBE SCH (09:00)
[2022-04-23] MEDS: methylPREDNISolone Sod Succ 40 MG VIAL IVP SCH (10:55)
[2022-04-23] MEDS: Furosemide 40 MG/4 ML VIAL SLOW IVP SCH (12:28)
[2022-04-23] MEDS: fentaNYL Citrate-0.9 % NaCl/PF 100 ML IV SCH (13:14)
[2022-04-23 13:39] VITALS: BMI 22.4
[2022-04-23] MEDS: Nicotine 14 MG PATCH TD SCH (15:52)
[2022-04-24] MEDS: fentaNYL Citrate-0.9 % NaCl/PF 100 ML IV SCH (03:01)
[2022-04-24 04:57] LABS: #Eosinphils 0.1 thou/uL (0.0-0.7); #Lymphocytes 0.9 thou/uL (1.20-3.40); #Monocytes 0.5 thou/uL (0.11-0.59); #Neutrophils 3.2 thou/uL (1.40-6.50); %Basophils 0.3 % (0.0-1.0); %Eosinophils 1.2 % (0.0-10.0); %Lymphocytes 18.8 % (21.0-51.0); %Monocytes 9.9 % (0.0-10.0); %Neutrophils 69.7 % (42.0-75.0); Hemoglobin 9.6 g/dL (14.0-18.0); Mean Corpuscular HGB CONC 32.1 g/dL (32.0-36.0); Mean Corpuscular Hemoglobin 34.1 pg (27.0-31.0); Mean Platelet Volume 8.7 fL (7.4-10.4); Platelet Count 251 thou/uL (130-400); RBC Distribution Width 13.8 % (11.5-14.5); White Blood Cell (WBC) Count 4.6 thou/uL (4.8-10.8)
[2022-04-24 05:14] LABS: Anion Gap 11 mmol/L (10-20); BUN (Urea Nitrogen) 34 mg/dL (8.4-25.7); Calc. Creatinine Clearance 89 mL/min (70-130); Calcium 7.5 mg/dL (7.8-10.44); Carbon Dioxide 29 mmol/L (22-29); Chloride 112 mmol/L (98-107); Glucose 105 mg/dL (70-105); Potassium 3.2 mmol/L (3.5-5.1); Sodium 149 mmol/L (136-145)
[2022-04-24] MEDS: Potassium Chloride 20 MEQ in Premix Bag 1 BAG IVPB SCH ×2 (06:35→08:18)
[2022-04-24 07:43] VITALS: BP 125/65
[2022-04-24 07:47] VITALS: TEMP 98.6
[2022-04-24] MEDS: Lorazepam 2 MG/ML VIAL SLOW IVP PRN (08:19)
[2022-04-24] MEDS: methylPREDNISolone Sod Succ 40 MG VIAL IVP SCH (08:30)
[2022-04-24] MEDS: Enoxaparin Sodium 60 MG/0.6 ML SYRINGE SC SCH (08:30)
[2022-04-24] MEDS: Senokot S 8.6-50 MG TAB PO SCH (08:31)
[2022-04-24] MEDS: Polyethylene Glycol 3350 17 GM Packet PER TUBE SCH (08:31)
== END 2022-04-24 09:11 | DRG 4 ==
LOC: ERS 09:37 → ERHOLD 14:08 → CCU 16:24
PROVIDERS: ADMIT Internal Medicine; ATTEND Internal Medicine
PROC: 5A1955Z Respiratory Ventilation, Greater than 96 Consecutive Hours (ICD-10-PCS; 2022-04-10)
PROC: 0BH17EZ Insertion of Endotracheal Airway into Trachea, Via Natural or Artificial Opening (ICD-10-PCS; 2022-04-10)
PROC: 0D9670Z Drainage of Stomach with Drainage Device, Via Natural or Artificial Opening (ICD-10-PCS; 2022-04-10)
PROC: 30233N1 Transfusion of Nonautologous Red Blood Cells into Peripheral Vein, Percutaneous Approach (ICD-10-PCS; 2022-04-10)
PROC: 3E043XZ Introduction of Vasopressor into Central Vein, Percutaneous Approach (ICD-10-PCS; 2022-04-10)
PROC: 3E04329 Introduction of Other Anti-infective into Central Vein, Percutaneous Approach (ICD-10-PCS; 2022-04-10)
PROC: 02HV33Z Insertion of Infusion Device into Superior Vena Cava, Percutaneous Approach (ICD-10-PCS; 2022-04-10)
PROC: 06H03DZ Insertion of Intraluminal Device into Inferior Vena Cava, Percutaneous Approach (ICD-10-PCS; 2022-04-15)
PROC: 0B113F4 Bypass Trachea to Cutaneous with Tracheostomy Device, Percutaneous Approach (ICD-10-PCS; principal; 2022-04-21)
PROC: 0DH63UZ Insertion of Feeding Device into Stomach, Percutaneous Approach (ICD-10-PCS; 2022-04-21)
PROC: 3E0436Z Introduction of Nutritional Substance into Central Vein, Percutaneous Approach (ICD-10-PCS; 2022-04-23)
DX: A40.3 Sepsis due to Streptococcus pneumoniae (principal); J13 Pneumonia due to Streptococcus pneumoniae; J69.0 Pneumonitis due to inhalation of food and vomit; J96.01 Acute respiratory failure with hypoxia; R65.21 Severe sepsis with septic shock; K72.00 Acute and subacute hepatic failure without coma; N30.00 Acute cystitis without hematuria; D61.818 Other pancytopenia; N17.9 Acute kidney failure, unspecified; M62.82 Rhabdomyolysis; K86.1 Other chronic pancreatitis; G93.1 Anoxic brain damage, not elsewhere classified; G93.40 Encephalopathy, unspecified; I48.92 Unspecified atrial flutter; I82.412 Acute embolism and thrombosis of left femoral vein; E87.0 Hyperosmolality and hypernatremia; G72.81 Critical illness myopathy; E87.2 Acidosis; Z20.822 Contact with and (suspected) exposure to COVID-19; I25.10 Atherosclerotic heart disease of native coronary artery without angina pectoris; K21.9 Gastro-esophageal reflux disease without esophagitis; E78.5 Hyperlipidemia, unspecified; F17.210 Nicotine dependence, cigarettes, uncomplicated; E16.2 Hypoglycemia, unspecified; I12.9 Hypertensive chronic kidney disease with stage 1 through stage 4 chronic kidney disease, or unspecified chronic kidney disease; N18.9 Chronic kidney disease, unspecified; D63.1 Anemia in chronic kidney disease; G89.4 Chronic pain syndrome; F12.10 Cannabis abuse, uncomplicated; F41.9 Anxiety disorder, unspecified; M54.9 Dorsalgia, unspecified; I73.9 Peripheral vascular disease, unspecified; I44.30 Unspecified atrioventricular block; I48.0 Paroxysmal atrial fibrillation; R00.1 Bradycardia, unspecified; G93.89 Other specified disorders of brain; Z95.1 Presence of aortocoronary bypass graft; Z98.890 Other specified postprocedural states; Z88.5 Allergy status to narcotic agent; Z88.0 Allergy status to penicillin; Z88.8 Allergy status to other drugs, medicaments and biological substances; Z79.82 Long term (current) use of aspirin; Z79.899 Other long term (current) drug therapy; Z79.01 Long term (current) use of anticoagulants; Z87.19 Personal history of other diseases of the digestive system; Z90.49 Acquired absence of other specified parts of digestive tract; Z95.5 Presence of coronary angioplasty implant and graft; Z78.1 Physical restraint status
CPT/HCPCS: 31500; 36415; 36416; 36430; 36556; 36600; 37191; 51702; 70450; 71045; 71250; 72125; 72170; 74177; 75825; 76942; 80048; 80053; 80162; 80202; 80306; 81003; 81015; 82140; 82533; 82550; 82607; 82728; 82746; 82805; 83540; 83550; 83605; 83735; 84100; 84145; 84443; 84484; 85025; 85049; 85060; 85300; 85362; 85379; 85384; 85610; 85730; 86850; 86900; 86901; 87040; 87077; 87081; 87086; 87149; 87186; 93005; 93010; 93306; 93970; 94002; 94003; 94640; 95712; 95819; 95957; 96361; 96365; 96366; 96367; 96368; 96375; 99292; C1880; J0171; J0282; J0456; J0690; J1160; J1650; J1720; J1815; J1940; J1956; J2060; J2185; J2250; J2543; J2704; J2920; J3010; J3370; J3475; J3480; J3490; J7030; J7050; J7070; J7620; J7999; P9016; Q9967; U0002; U0003; U0005

== ENCOUNTER 2023-06-01 12:59 | Outpatient (CLI) | payer MEDICARE, MEDICAID | END 2023-06-01 13:00 | disposition home or self-care (01) | LOC: RAD 12:59 | PROVIDERS: ATTEND Internal Medicine Critical Care Medicine | DX: R06.00 Dyspnea, unspecified (principal) | CPT/HCPCS: 71046 ==

== ENCOUNTER 2023-06-08 12:18 | Observation (INO) | payer MEDICARE, MEDICAID ==
[~2023-06-08 12:18] MED LIST changes: -Iopamidol 370 76% 100 ML VIAL ONE; +Iopamidol-370 76% 500 ML MDV (1 ML CHARGE) ONE
[2023-06-08 12:45] LABS: #Eosinphils 0.1 thou/uL (0.0-0.7); #Monocytes 0.5 thou/uL (0.11-0.59); #Neutrophils 2.4 thou/uL (1.40-6.50); %Basophils 0.2 % (0.0-1.0); %Eosinophils 1.1 % (0.0-10.0); %Monocytes 10.4 % (0.0-10.0); %Neutrophils 51.1 % (42.0-75.0); Hematocrit 37.5 % (42.0-52.0); Hemoglobin 12.3 g/dL (14.0-18.0); Mean Corpuscular HGB CONC 32.8 g/dL (32.0-36.0); Mean Corpuscular Hemoglobin 32.1 pg (27.0-31.0); Mean Corpuscular Volume 97.9 fl (78.0-98.0); RBC Distribution Width 13.6 % (11.5-14.5); Red Blood Cell (RBC) Count 3.83 mill/uL (4.70-6.10); White Blood Cell (WBC) Count 4.6 10x3/uL (4.8-10.8)
[2023-06-08 13:10] LABS: ALT (SGPT) 16 U/L (8-55); AST (SGOT) 19 U/L (5-34); Albumin 3.8 g/dL (3.4-4.8); Alkaline Phosphatase 92 U/L (40-110); Anion Gap 9 mmol/L (10-20); BUN (Urea Nitrogen) 13 mg/dL (8.4-25.7); Bilirubin, Total 0.9 mg/dL (0.2-1.2); Calc. Creatinine Clearance 0 mL/min (70-130); Calcium 8.8 mg/dL (7.8-10.44); Carbon Dioxide 21 mmol/L (23-31); Chloride 112 mmol/L (98-107); Estimated GFR 80; Globulin 2.9 g/dL (2.4-3.5); Glucose 84 mg/dL (80-115); Potassium 3.5 mmol/L (3.5-5.1); Protein, Total 6.7 g/dL (5.8-8.1); Sodium 138 mmol/L (136-145)
[2023-06-08 13:17] LABS: Burr Cells SLIGHT = 2-5 cells HPF (0-1); CellaVision Operator ID LAB.MJL; Platelet Adequacy Comment Platelets Normal; Platelet Count 135 10x3/uL (130-400); Polychromasia SLIGHT = 2-3 cells HPF (0-2)
[2023-06-08] MEDS ORDERED: fentaNYL 50 mcg/mL 1 mL Vial ONE ×2 (13:34→14:06)
[2023-06-08] MEDS ORDERED: Ipratropium/Albuterol 3 ML NEB NEB PRN (14:12)
[2023-06-08] MEDS ORDERED: Aspirin Chewable 81 MG TAB PO SCH (14:30)
[2023-06-08] MEDS ORDERED: HYDROcodone/Acetaminophen 5/325 mg Tablet PO PRN (15:31)
[2023-06-08 15:47] VITALS: BMI 22.3
[2023-06-08 17:14] LABS: Amphetamine Not Detected (NotDetected); Barbiturates Screen Not Detected (NotDetected); Benzodiazepine Screen Not Detected (NotDetected); Cocaine Metabolite Screen Not Detected (NotDetected); Methadone Not Detected (NotDetected); Methamphetamine Not Detected (NotDetected); Opiate Screen Detected (NotDetected); Oxycodone Screen Not Detected (NotDetected); Phencyclidine (PCP) Not Detected (NotDetected); THC/Cannabinoid Screen Detected (NotDetected); Tricyclic Screen Not Detected (NotDetected)
[2023-06-08] MEDS ORDERED: Nitroglycerin 0.4 MG TAB (25 Tab Bottle) SL PRN (17:14)
[2023-06-08 17:48] LABS: Troponin I Less than 0.010 ng/mL (< 0.028)
[2023-06-08] MEDS: traMADol HCl 50 MG TAB PO PRN (17:56)
[2023-06-08] MEDS: Nitroglycerin 0.4 MG TAB (25 Tab Bottle) SL PRN ×2 (17:59→22:36)
[2023-06-08] MEDS ORDERED: Potassium Chloride 20 MEQ TAB PO SCH (18:15)
[2023-06-08 20:35] LABS: Troponin I Less than 0.010 ng/mL (< 0.028)
[2023-06-08] MEDS: Sucralfate 1 GM TAB PO SCH (20:42)
[2023-06-08] MEDS: Gabapentin 100 MG CAP PO SCH (20:42)
[2023-06-08] MEDS: Carvedilol 3.125 MG TAB PO SCH (20:42)
[2023-06-08] MEDS ORDERED: Rosuvastatin 20 MG TAB PO SCH (21:00)
[2023-06-08] MEDS ORDERED: Metoprolol Tartrate 25 MG TAB PO SCH (21:00)
[2023-06-08] MEDS ORDERED: Atorvastatin Calcium 40 MG TAB PO SCH (21:00)
[2023-06-08] MEDS: HYDROcodone/Acetaminophen 10/325 mg Tablet PO PRN (21:21)
[2023-06-08] MEDS: Gabapentin 300 MG CAP PO SCH (21:22)
[2023-06-09 05:28] LABS: #Eosinphils 0.1 thou/uL (0.0-0.7); #Monocytes 0.5 thou/uL (0.11-0.59); %Basophils 0.2 % (0.0-1.0); %Eosinophils 1.6 % (0.0-10.0); %Lymphocytes 40.8 % (21.0-51.0); %Monocytes 10.9 % (0.0-10.0); %Neutrophils 46.3 % (42.0-75.0); Hematocrit 38.4 % (42.0-52.0); Hemoglobin 12.9 g/dL (14.0-18.0); Mean Corpuscular HGB CONC 33.6 g/dL (32.0-36.0); Mean Corpuscular Volume 98.2 fl (78.0-98.0); Mean Platelet Volume 10.1 fL (7.4-10.4); Platelet Count 144 10x3/uL (130-400); RBC Distribution Width 13.6 % (11.5-14.5); Red Blood Cell (RBC) Count 3.91 mill/uL (4.70-6.10); White Blood Cell (WBC) Count 4.3 10x3/uL (4.8-10.8)
[2023-06-09 05:47] LABS: Hemoglobin A1c 5.1 % (4.0-6.0)
[2023-06-09 05:59] LABS: Anion Gap 9 mmol/L (10-20); BUN (Urea Nitrogen) 11 mg/dL (8.4-25.7); Calc. Creatinine Clearance 74 mL/min (70-130); Calcium 8.8 mg/dL (7.8-10.44); Carbon Dioxide 22 mmol/L (23-31); Cardiac Risk 3.3 (Less than 4.5); Chloride 112 mmol/L (98-107); Cholesterol 92 mg/dl (< 200 Desired); Estimated GFR 78; Glucose 89 mg/dL (80-115); HDL Cholesterol 28 mg/dL (>60 Neg Risk); LDL Cholesterol, Calculated 46 mg/dL; Potassium 3.6 mmol/L (3.5-5.1); Sodium 139 mmol/L (136-145); Triglycerides 89 mg/dL (Less than 150)
[2023-06-09] MEDS: Gabapentin 300 MG CAP PO SCH (07:51)
[2023-06-09] MEDS: Gabapentin 100 MG CAP PO SCH (07:51)
[2023-06-09] MEDS: HYDROcodone/Acetaminophen 10/325 mg Tablet PO PRN ×2 (07:52→13:35)
[2023-06-09] MEDS ORDERED: Clopidogrel Bisulfate 75 MG TAB PO SCH (09:00)
[2023-06-09] MEDS ORDERED: Aspirin Chewable 81 MG TAB PO SCH (09:00)
[2023-06-09] MEDS ORDERED: Aspirin 81 mg Enteric Coated Tablet PO SCH (09:00)
[2023-06-09] MEDS: Pancrelipase DR 12,000 1 CAP PO SCH ×2 (09:09→11:43)
[2023-06-09] MEDS: Sucralfate 1 GM TAB PO SCH ×2 (09:10→11:42)
[2023-06-09] MEDS ORDERED: Regadenoson 0.4 MG/5 ML SYRINGE ONE (09:17)
[2023-06-09 11:41] VITALS: BP 114/59; TEMP 97.8
[2023-06-09] MEDS: traMADol HCl 50 MG TAB PO PRN (11:42)
[2023-06-09] MEDS: Carvedilol 3.125 MG TAB PO SCH (11:42)
== END 2023-06-09 15:24 | disposition home or self-care (01) ==
LOC: ERS 12:18 → 2SW 14:21
PROVIDERS: ADMIT Internal Medicine Cardiovascular Disease; ATTEND Internal Medicine
DX: I25.110 Atherosclerotic heart disease of native coronary artery with unstable angina pectoris (principal); K86.1 Other chronic pancreatitis; I10 Essential (primary) hypertension; E78.5 Hyperlipidemia, unspecified; F12.90 Cannabis use, unspecified, uncomplicated; M54.50 Low back pain, unspecified; R91.1 Solitary pulmonary nodule; J44.9 Chronic obstructive pulmonary disease, unspecified; G89.29 Other chronic pain; Z88.5 Allergy status to narcotic agent; Z88.0 Allergy status to penicillin; Z88.8 Allergy status to other drugs, medicaments and biological substances; Z79.82 Long term (current) use of aspirin; Z79.02 Long term (current) use of antithrombotics/antiplatelets; Z95.810 Presence of automatic (implantable) cardiac defibrillator; Z79.899 Other long term (current) drug therapy
CPT/HCPCS: 71045; 71275; 78452; 80048; 80053; 80061; 80306; 83036; 84484 ×2; 85025 ×2; 93005; 93017; 93971; 94760 ×2; 96372; 96374; 96376; 99285; A9500; G0378 ×3; J3010; 36415; J1650; J2785; Q9967

== ENCOUNTER 2023-06-14 08:00 | Outpatient (CLI) | payer MEDICARE, MEDICAID | END 2023-06-14 08:01 | disposition home or self-care (01) | LOC: PET 08:00 | PROVIDERS: ATTEND Internal Medicine Critical Care Medicine | DX: R91.8 Other nonspecific abnormal finding of lung field (principal) | CPT/HCPCS: 78815; A9552 ==

== ENCOUNTER 2023-10-04 15:56 | Outpatient (CLI) | payer MEDICARE, MEDICAID | END 2023-10-04 15:57 | disposition home or self-care (01) | LOC: RAD 15:56 | PROVIDERS: ATTEND Internal Medicine Critical Care Medicine | DX: R06.00 Dyspnea, unspecified (principal) | CPT/HCPCS: 71046 ==

== ENCOUNTER 2024-03-22 15:08 | Outpatient (CLI) | payer MEDICARE, MEDICAID | END 2024-03-22 15:09 | disposition home or self-care (01) | LOC: RAD 15:08 | PROVIDERS: ATTEND Internal Medicine Critical Care Medicine | DX: R06.00 Dyspnea, unspecified (principal); J44.9 Chronic obstructive pulmonary disease, unspecified | CPT/HCPCS: 71046 ==